=== PATIENT | male | born 1970 | race Caucasian/White ===

== ENCOUNTER 2021-03-16 21:09 | Emergency (ER) | payer OTHER | END 2021-03-16 22:57 | disposition left against medical advice (07) | LOC: ERS 21:09 | DX: Z53.21 Procedure and treatment not carried out due to patient leaving prior to being seen by health care provider (principal) ==

== ENCOUNTER 2021-03-17 06:58 | Emergency (ER) | payer OTHER | END 2021-03-17 14:46 | disposition left against medical advice (07) | LOC: ERS 06:58 | DX: Z00.00 Encounter for general adult medical examination without abnormal findings (principal) | CPT/HCPCS: 99283 ==

== ENCOUNTER 2021-03-31 10:00 | Emergency (ER) | payer SELFPAY | END 2021-03-31 12:24 | disposition home or self-care (01) | LOC: ERS 10:00 | DX: R21 Rash and other nonspecific skin eruption (principal); J44.9 Chronic obstructive pulmonary disease, unspecified; I25.2 Old myocardial infarction; F17.210 Nicotine dependence, cigarettes, uncomplicated | CPT/HCPCS: 99282 ==

== ENCOUNTER 2021-06-25 12:32 | Inpatient (IN) | payer MEDICAID, OTHER ==
[2021-06-25] MEDS ORDERED: Aspirin Chewable 81 MG TAB ONE (13:00)
[2021-06-25] MEDS ORDERED: Furosemide 40 MG/4 ML VIAL ONE (13:00)
[2021-06-25] MEDS ORDERED: Nitroglycerin 2% Ointment 1 INCH/1 GM Packet ONE (13:00)
[2021-06-25 13:33] LABS: #Eosinphils 0.1 thou/uL (0.0-0.7); #Lymphocytes 1.8 thou/uL (1.20-3.40); #Monocytes 0.5 thou/uL (0.11-0.59); #Neutrophils 5.8 thou/uL (1.40-6.50); %Basophils 0.6 % (0.0-1.0); %Eosinophils 1.3 % (0.0-10.0); %Monocytes 6.4 % (0.0-10.0); %Neutrophils 69.7 % (42.0-75.0); Mean Corpuscular HGB CONC 33.9 g/dL (32.0-36.0); Mean Corpuscular Hemoglobin 30.7 pg (27.0-31.0); Mean Corpuscular Volume 90.8 fL (78.0-98.0); Mean Platelet Volume 7.3 fL (7.4-10.4); Platelet Count 254 thou/uL (130-400); RBC Distribution Width 12.6 % (11.5-14.5); Red Blood Cell (RBC) Count 4.55 mill/uL (4.70-6.10); White Blood Cell (WBC) Count 8.4 thou/uL (4.8-10.8)
[2021-06-25 13:57] LABS: ALT (SGPT) 46 U/L (8-55); AST (SGOT) 31 U/L (5-34); Albumin 3.6 g/dL (3.5-5.0); Alkaline Phosphatase 97 U/L (40-110); Anion Gap 12 mmol/L (10-20); BUN (Urea Nitrogen) 10 mg/dL (8.4-25.7); Bilirubin, Total 0.3 mg/dL (0.2-1.2); Calc. Creatinine Clearance 0 mL/min (70-130); Calcium 9.2 mg/dL (7.8-10.44); Carbon Dioxide 18 mmol/L (22-29); Chloride 110 mmol/L (98-107); Globulin 2.9 g/dL (2.4-3.5); Glucose 102 mg/dL (70-105); Potassium 4.3 mmol/L (3.5-5.1); Protein, Total 6.5 g/dL (6.0-8.3); Sodium 136 mmol/L (136-145)
[2021-06-25] MEDS ORDERED: Lorazepam 1 MG TAB ONE (14:06)
[2021-06-25] MEDS ORDERED: Morphine 4 MG/ML VIAL ONE (14:12)
[2021-06-25 15:44] LABS: Amphetamine Detected (NotDetected); Barbiturates Screen Not Detected (NotDetected); Benzodiazepine Screen Not Detected (NotDetected); Cocaine Metabolite Screen Not Detected (NotDetected); Methadone Not Detected (NotDetected); Methamphetamine Detected (NotDetected); Opiate Screen Detected (NotDetected); Oxycodone Screen Not Detected (NotDetected); Phencyclidine (PCP) Not Detected (NotDetected); THC/Cannabinoid Screen Not Detected (NotDetected); Tricyclic Screen Not Detected (NotDetected)
[2021-06-25] MEDS ORDERED: Ondansetron ODT 4 MG TAB PO PRN (16:02)
[2021-06-25 18:03] LABS: Troponin I 0.047 ng/mL (< 0.028)
[2021-06-25 18:08] LABS: Cardiac Risk 3.3 (Less than 4.5)
[2021-06-25] MEDS ORDERED: ALBUTEROL 5 MG/ML NEB PRN (19:11)
[2021-06-25] MEDS ORDERED: Albuterol Sulfate 2.5 mg/3 ml Neb NEB PRN (19:42)
[2021-06-25] MEDS ORDERED: Mometasone 100 MCG/Formoterol 5 MCG 120 PUFF INHALER INH SCH (19:45)
[2021-06-25] MEDS: Baclofen 10 MG TAB PO SCH (22:18)
[2021-06-25] MEDS: Enoxaparin Sodium 40 MG/0.4 ML SYRINGE SC SCH (22:18)
[2021-06-25] MEDS: Gabapentin 300 MG CAP PO SCH (22:18)
[2021-06-25] MEDS: DULoxetine 30 MG CAP PO SCH (22:19)
[2021-06-25] MEDS: Dicyclomine 20 MG TAB PO SCH (22:19)
[2021-06-25] MEDS: busPIRone HCl 5 MG TAB PO SCH (22:20)
[2021-06-26 06:00] LABS: #Basophils 0.1 thou/uL (0.0-0.2); #Eosinphils 0.1 thou/uL (0.0-0.7); #Lymphocytes 1.4 thou/uL (1.20-3.40); #Monocytes 0.7 thou/uL (0.11-0.59); #Neutrophils 6.6 thou/uL (1.40-6.50); %Basophils 1.1 % (0.0-1.0); %Eosinophils 1.4 % (0.0-10.0); %Lymphocytes 15.7 % (21.0-51.0); %Monocytes 7.6 % (0.0-10.0); %Neutrophils 74.1 % (42.0-75.0); Hemoglobin 15.1 g/dL (14.0-18.0); Mean Corpuscular Volume 93.8 fL (78.0-98.0); Mean Platelet Volume 7.3 fL (7.4-10.4); Platelet Count 254 thou/uL (130-400); RBC Distribution Width 12.7 % (11.5-14.5); Red Blood Cell (RBC) Count 5.04 mill/uL (4.70-6.10); White Blood Cell (WBC) Count 8.9 thou/uL (4.8-10.8)
[2021-06-26 06:26] LABS: ALT (SGPT) 42 U/L (8-55); AST (SGOT) 24 U/L (5-34); Albumin 3.7 g/dL (3.5-5.0); Alkaline Phosphatase 101 U/L (40-110); Anion Gap 12 mmol/L (10-20); BUN (Urea Nitrogen) 14 mg/dL (8.4-25.7); Bilirubin, Total 0.7 mg/dL (0.2-1.2); Calc. Creatinine Clearance 98 mL/min (70-130); Calcium 9.7 mg/dL (7.8-10.44); Carbon Dioxide 23 mmol/L (22-29); Chloride 106 mmol/L (98-107); Globulin 3.2 g/dL (2.4-3.5); Glucose 114 mg/dL (70-105); Potassium 4.4 mmol/L (3.5-5.1); Protein, Total 6.9 g/dL (6.0-8.3); Sodium 137 mmol/L (136-145)
[2021-06-26] MEDS: Mometasone 100 MCG/Formoterol 5 MCG 120 PUFF INHALER INH SCH ×2 (07:39→17:35)
[2021-06-26] MEDS ORDERED: Furosemide 20 MG/2 ML VIAL SLOW IVP SCH ×2 (09:00→11:45)
[2021-06-26] MEDS: Levothyroxine Sodium 25 MCG TAB PO SCH (09:57)
[2021-06-26] MEDS: Gabapentin 300 MG CAP PO SCH ×3 (09:57→22:07)
[2021-06-26] MEDS: Aspirin Chewable 81 MG TAB PO SCH (09:57)
[2021-06-26] MEDS: DULoxetine 30 MG CAP PO SCH ×3 (09:58→22:08)
[2021-06-26] MEDS: Dicyclomine 20 MG TAB PO SCH ×4 (09:58→22:08)
[2021-06-26] MEDS: busPIRone HCl 5 MG TAB PO SCH ×2 (09:58→22:08)
[2021-06-26] MEDS: Lisinopril 10 MG TAB PO SCH (09:58)
[2021-06-26] MEDS: Baclofen 10 MG TAB PO SCH ×4 (09:58→22:08)
[2021-06-26] MEDS: Spironolactone 25 MG TAB PO SCH (09:59)
[2021-06-26] MEDS: Lidocaine 5% Patch TD SCH (09:59)
[2021-06-26] MEDS ORDERED: Furosemide 40 MG/4 ML VIAL SLOW IVP SCH ×2 (10:45→21:00)
[2021-06-26 11:44] LABS: SARS-CoV-2 PCR by NAA Not Detected (NotDetected)
[2021-06-26 15:15] LABS: Free T4 (Free Thyroxine) 0.84 ng/dL (0.70-1.48)
[2021-06-26] MEDS: Carvedilol 3.125 MG TAB PO SCH (17:13)
[2021-06-26] MEDS ORDERED: Non-Formulary Item 1 EACH (Carvedilol [Carvedilol] 12.5 MG Tablet) PO SCH (21:00)
[2021-06-26] MEDS: Enoxaparin Sodium 40 MG/0.4 ML SYRINGE SC SCH ×2 (22:06→22:40)
[2021-06-26] MEDS: Transdermal Patch Removal TOP SCH (22:09)
[2021-06-27 04:59] LABS: #Basophils 0.1 thou/uL (0.0-0.2); #Eosinphils 0.1 thou/uL (0.0-0.7); #Lymphocytes 1.4 thou/uL (1.20-3.40); #Monocytes 0.6 thou/uL (0.11-0.59); #Neutrophils 6.6 thou/uL (1.40-6.50); %Basophils 0.8 % (0.0-1.0); %Eosinophils 1.5 % (0.0-10.0); %Lymphocytes 15.8 % (21.0-51.0); %Neutrophils 74.9 % (42.0-75.0); Hemoglobin 15.9 g/dL (14.0-18.0); Mean Corpuscular HGB CONC 32.4 g/dL (32.0-36.0); Mean Corpuscular Hemoglobin 29.6 pg (27.0-31.0); Mean Corpuscular Volume 91.3 fL (78.0-98.0); Mean Platelet Volume 7.3 fL (7.4-10.4); Platelet Count 253 thou/uL (130-400); RBC Distribution Width 12.6 % (11.5-14.5); Red Blood Cell (RBC) Count 5.38 mill/uL (4.70-6.10); White Blood Cell (WBC) Count 8.9 thou/uL (4.8-10.8)
[2021-06-27 05:24] LABS: ALT (SGPT) 35 U/L (8-55); AST (SGOT) 20 U/L (5-34); Albumin 3.9 g/dL (3.5-5.0); Alkaline Phosphatase 106 U/L (40-110); Anion Gap 12 mmol/L (10-20); BUN (Urea Nitrogen) 22 mg/dL (8.4-25.7); Bilirubin, Total 0.4 mg/dL (0.2-1.2); Calc. Creatinine Clearance 104 mL/min (70-130); Calcium 9.6 mg/dL (7.8-10.44); Carbon Dioxide 23 mmol/L (22-29); Chloride 104 mmol/L (98-107); Globulin 3.1 g/dL (2.4-3.5); Glucose 110 mg/dL (70-105); Potassium 4.1 mmol/L (3.5-5.1); Sodium 135 mmol/L (136-145)
[2021-06-27] MEDS: Levothyroxine Sodium 25 MCG TAB PO SCH (05:54)
[2021-06-27] MEDS: Mometasone 100 MCG/Formoterol 5 MCG 120 PUFF INHALER INH SCH ×2 (06:33→18:51)
[2021-06-27] MEDS ORDERED: Furosemide 20 MG/2 ML VIAL SLOW IVP SCH (09:15)
[2021-06-27] MEDS: Carvedilol 3.125 MG TAB PO SCH ×2 (10:10→20:16)
[2021-06-27] MEDS: busPIRone HCl 5 MG TAB PO SCH (10:11)
[2021-06-27] MEDS: Lidocaine 5% Patch TD SCH (10:11)
[2021-06-27] MEDS: Aspirin Chewable 81 MG TAB PO SCH (10:11)
[2021-06-27] MEDS: Spironolactone 25 MG TAB PO SCH (10:11)
[2021-06-27] MEDS: Dicyclomine 20 MG TAB PO SCH ×4 (10:11→21:52)
[2021-06-27] MEDS: DULoxetine 30 MG CAP PO SCH ×3 (10:11→21:53)
[2021-06-27] MEDS: Lisinopril 10 MG TAB PO SCH (10:11)
[2021-06-27] MEDS ORDERED: Furosemide 40 MG TAB PO SCH (17:15)
[2021-06-27] MEDS ORDERED: Furosemide 40 MG/4 ML VIAL SLOW IVP SCH (18:30)
[2021-06-27] MEDS ORDERED: Levothyroxine Sodium 200 MCG VIAL IVP SCH (18:30)
[2021-06-27] MEDS: Furosemide 20 MG/2 ML VIAL SLOW IVP SCH (20:13)
[2021-06-27] MEDS: Enoxaparin Sodium 40 MG/0.4 ML SYRINGE SC SCH (21:53)
[2021-06-27] MEDS: Transdermal Patch Removal TOP SCH (21:54)
[2021-06-28] MEDS: Levothyroxine Sodium 25 MCG TAB PO SCH (06:48)
[2021-06-28] MEDS: Furosemide 20 MG/2 ML VIAL SLOW IVP SCH ×2 (06:50→18:42)
[2021-06-28] MEDS: Mometasone 100 MCG/Formoterol 5 MCG 120 PUFF INHALER INH SCH ×2 (07:58→19:02)
[2021-06-28] MEDS: Lisinopril 10 MG TAB PO SCH ×2 (09:16→09:23)
[2021-06-28] MEDS: Spironolactone 25 MG TAB PO SCH ×2 (09:16→09:23)
[2021-06-28] MEDS: Dicyclomine 20 MG TAB PO SCH ×4 (09:16→22:12)
[2021-06-28] MEDS: Carvedilol 3.125 MG TAB PO SCH ×3 (09:16→18:43)
[2021-06-28] MEDS: Aspirin Chewable 81 MG TAB PO SCH ×2 (09:16→09:24)
[2021-06-28] MEDS: Lidocaine 5% Patch TD SCH ×3 (09:17→09:55)
[2021-06-28] MEDS: DULoxetine 30 MG CAP PO SCH ×4 (09:17→22:12)
[2021-06-28] MEDS ORDERED: diphenhydrAMINE 50 MG/ML VIAL IM SCH (14:30)
[2021-06-28] MEDS ORDERED: Haloperidol Lactate 5 MG/ML VIAL IM SCH (14:30)
[2021-06-28] MEDS ORDERED: Haloperidol Lactate 5 MG/ML VIAL IM PRN (16:07)
[2021-06-28] MEDS ORDERED: Furosemide 40 MG/4 ML VIAL SLOW IVP SCH (16:15)
[2021-06-28 17:41] LABS: #Eosinphils 0.1 thou/uL (0.0-0.7); #Lymphocytes 1.6 thou/uL (1.20-3.40); #Monocytes 0.9 thou/uL (0.11-0.59); #Neutrophils 8.8 thou/uL (1.40-6.50); %Basophils 0.3 % (0.0-1.0); %Eosinophils 0.5 % (0.0-10.0); %Monocytes 7.7 % (0.0-10.0); %Neutrophils 77.5 % (42.0-75.0); Hemoglobin 17.5 g/dL (14.0-18.0); Mean Corpuscular HGB CONC 32.2 g/dL (32.0-36.0); Mean Corpuscular Hemoglobin 29.1 pg (27.0-31.0); Mean Corpuscular Volume 90.3 fL (78.0-98.0); Mean Platelet Volume 7.3 fL (7.4-10.4); Platelet Count 241 thou/uL (130-400); RBC Distribution Width 12.6 % (11.5-14.5); Red Blood Cell (RBC) Count 6.02 mill/uL (4.70-6.10); White Blood Cell (WBC) Count 11.3 thou/uL (4.8-10.8)
[2021-06-28 18:08] LABS: Lactic Acid 2.1 mmol/L (0.5-2.2)
[2021-06-28 18:10] LABS: Bacteria/HPF None Seen HPF (None Seen); Bilirubin Negative (Negative); Blood, Urine Negative (Negative); Clarity Turbid (Clear); Glucose, Urine (Dipstick) Normal (Negative); Ketone, Urine Trace mg/dL (Negative); Leukocyte Negative Leu/uL (Negative); Nitrite Negative (Negative); Protein, Urine (Dipstick) 30 mg/dL (Neg-Trace); RBC/HPF 0-3 HPF (0-3); Specific Gravity, Urine 1.033 (1.002-1.036); Squamous Epithelial 0-3 HPF (0-3); Urobilinogen Normal mg/dL (Less than 2); WBC/HPF 0-3 HPF (0-3); pH, Urine 5.5 (5.0-9.0)
[2021-06-28 18:11] LABS: ALT (SGPT) 28 U/L (8-55); AST (SGOT) 63 U/L (5-34); Albumin 4.1 g/dL (3.5-5.0); Alkaline Phosphatase 113 U/L (40-110); Anion Gap 17 mmol/L (10-20); BUN (Urea Nitrogen) 29 mg/dL (8.4-25.7); Bilirubin, Total 0.8 mg/dL (0.2-1.2); Calc. Creatinine Clearance 105 mL/min (70-130); Carbon Dioxide 18 mmol/L (22-29); Chloride 107 mmol/L (98-107); Globulin 3.5 g/dL (2.4-3.5); Glucose 102 mg/dL (70-105); Potassium 4.4 mmol/L (3.5-5.1); Protein, Total 7.6 g/dL (6.0-8.3); Sodium 138 mmol/L (136-145)
[2021-06-28 18:18] LABS: Amphetamine Detected (NotDetected); Barbiturates Screen Not Detected (NotDetected); Benzodiazepine Screen Not Detected (NotDetected); Cocaine Metabolite Screen Not Detected (NotDetected); Methadone Not Detected (NotDetected); Methamphetamine Detected (NotDetected); Opiate Screen Not Detected (NotDetected); Oxycodone Screen Not Detected (NotDetected); Phencyclidine (PCP) Not Detected (NotDetected); THC/Cannabinoid Screen Not Detected (NotDetected); Tricyclic Screen Not Detected (NotDetected)
[2021-06-28] MEDS: Transdermal Patch Removal TOP SCH (22:12)
[2021-06-28] MEDS: Haloperidol Lactate 5 MG/ML VIAL IM PRN (23:04)
[2021-06-28] MEDS: Enoxaparin Sodium 40 MG/0.4 ML SYRINGE SC SCH (23:53)
[2021-06-29 04:49] LABS: #Basophils 0.1 thou/uL (0.0-0.2); #Eosinphils 0.1 thou/uL (0.0-0.7); #Lymphocytes 1.7 thou/uL (1.20-3.40); %Basophils 0.5 % (0.0-1.0); %Eosinophils 0.5 % (0.0-10.0); %Monocytes 10.3 % (0.0-10.0); %Neutrophils 71.7 % (42.0-75.0); Hemoglobin 17.1 g/dL (14.0-18.0); Mean Corpuscular HGB CONC 33.3 g/dL (32.0-36.0); Mean Corpuscular Volume 90.1 fL (78.0-98.0); Mean Platelet Volume 7.4 fL (7.4-10.4); Platelet Count 282 thou/uL (130-400); RBC Distribution Width 12.6 % (11.5-14.5); Red Blood Cell (RBC) Count 5.71 mill/uL (4.70-6.10); White Blood Cell (WBC) Count 9.7 thou/uL (4.8-10.8)
[2021-06-29 05:10] LABS: ALT (SGPT) 31 U/L (8-55); AST (SGOT) 83 U/L (5-34); Alkaline Phosphatase 110 U/L (40-110); Anion Gap 16 mmol/L (10-20); BUN (Urea Nitrogen) 33 mg/dL (8.4-25.7); Calc. Creatinine Clearance 93 mL/min (70-130); Calcium 10.1 mg/dL (7.8-10.44); Carbon Dioxide 19 mmol/L (22-29); Chloride 108 mmol/L (98-107); Globulin 3.5 g/dL (2.4-3.5); Glucose 127 mg/dL (70-105); Potassium 4.3 mmol/L (3.5-5.1); Protein, Total 7.5 g/dL (6.0-8.3); Sodium 139 mmol/L (136-145)
[2021-06-29] MEDS: Furosemide 20 MG/2 ML VIAL SLOW IVP SCH ×2 (05:33→14:02)
[2021-06-29] MEDS ORDERED: Levothyroxine Sodium 200 MCG VIAL IVP SCH (06:00)
[2021-06-29] MEDS: Mometasone 100 MCG/Formoterol 5 MCG 120 PUFF INHALER INH SCH ×2 (08:04→18:34)
[2021-06-29] MEDS: Lidocaine 5% Patch TD SCH (09:46)
[2021-06-29] MEDS: Aspirin 300 MG Suppository PR SCH ×3 (09:47→15:49)
[2021-06-29] MEDS: Dextrose 5%-Lactated Ringers 1,000 ML IV SCH (10:01)
[2021-06-29] MEDS: Levothyroxine Sodium 25 MCG TAB PO SCH (12:30)
[2021-06-29] MEDS: Carvedilol 3.125 MG TAB PO SCH ×2 (12:30→18:30)
[2021-06-29] MEDS: Dicyclomine 20 MG TAB PO SCH ×4 (12:31→20:04)
[2021-06-29] MEDS: Spironolactone 25 MG TAB PO SCH (12:31)
[2021-06-29] MEDS: DULoxetine 30 MG CAP PO SCH ×3 (12:31→20:04)
[2021-06-29] MEDS: Lisinopril 10 MG TAB PO SCH (12:31)
[2021-06-29] MEDS ORDERED: diphenhydrAMINE 50 MG/ML VIAL IM SCH (13:30)
[2021-06-29] MEDS: Haloperidol Lactate 5 MG/ML VIAL IM PRN (13:53)
[2021-06-29 15:14] LABS: Actual Bicarbonate (HCO3v) 20 mEq/L (22-28); Base Excess -2.6 mEq/L (-2.0 to +3.0); Calcium, Ionized (venous) 1.19 mmol/L (1.16-1.32); Chloride (VBG) 105 mmol/L (98-106); Hemoglobin (Hb) 17.7 g/dL (13.1-17.2); Potassium (VBG) 4.68 mmol/L (3.70-5.30); Sodium 139.6 mmol/L (133-146); pH (venous) 7.45 (7.32-7.43)
[2021-06-29] MEDS: Lorazepam 2 MG/ML VIAL SLOW IVP PRN (15:48)
[2021-06-29 17:08] LABS: HIV (1/2) Antibody/Antigen Non-Reactive (NonReactive); HIV 1/2 INDEX 0.11 S/CO (<1.00); Hep C IgG Ab Non-Reactive (NonReactive); Hep C Index 0.04 S/CO (0-0.79)
[2021-06-29 17:14] LABS: Troponin I 6.354 ng/mL (< 0.028)
[2021-06-29 19:06] LABS: Critical Call Chem Troponin I RESULT DECREASING; Troponin I 5.193 ng/mL (< 0.028)
[2021-06-29] MEDS: Enoxaparin Sodium 80 MG/0.8 ML SYRINGE SC SCH (20:30)
[2021-06-29] MEDS: Transdermal Patch Removal TOP SCH (20:32)
[2021-06-30] MEDS: Furosemide 20 MG/2 ML VIAL SLOW IVP SCH ×2 (05:25→16:19)
[2021-06-30] MEDS: Mometasone 100 MCG/Formoterol 5 MCG 120 PUFF INHALER INH SCH ×2 (07:21→18:46)
[2021-06-30 07:26] LABS: #Basophils 0.1 thou/uL (0.0-0.2); #Lymphocytes 1.8 thou/uL (1.20-3.40); #Monocytes 1.2 thou/uL (0.11-0.59); #Neutrophils 7.8 thou/uL (1.40-6.50); %Basophils 0.8 % (0.0-1.0); %Eosinophils 0.4 % (0.0-10.0); %Lymphocytes 16.2 % (21.0-51.0); %Monocytes 10.9 % (0.0-10.0); %Neutrophils 71.7 % (42.0-75.0); Hemoglobin 17.6 g/dL (14.0-18.0); Mean Corpuscular HGB CONC 32.3 g/dL (32.0-36.0); Mean Corpuscular Hemoglobin 29.6 pg (27.0-31.0); Mean Corpuscular Volume 91.4 fL (78.0-98.0); Mean Platelet Volume 7.4 fL (7.4-10.4); Platelet Count 259 thou/uL (130-400); RBC Distribution Width 12.6 % (11.5-14.5); Red Blood Cell (RBC) Count 5.96 mill/uL (4.70-6.10); White Blood Cell (WBC) Count 10.8 thou/uL (4.8-10.8)
[2021-06-30 07:45] LABS: ALT (SGPT) 37 U/L (8-55); AST (SGOT) 64 U/L (5-34); Albumin 4.1 g/dL (3.5-5.0); Alkaline Phosphatase 106 U/L (40-110); Anion Gap 20 mmol/L (10-20); BUN (Urea Nitrogen) 38 mg/dL (8.4-25.7); Bilirubin, Total 1.1 mg/dL (0.2-1.2); Calc. Creatinine Clearance 83 mL/min (70-130); Calcium 10.2 mg/dL (7.8-10.44); Carbon Dioxide 17 mmol/L (22-29); Chloride 109 mmol/L (98-107); Globulin 3.7 g/dL (2.4-3.5); Glucose 127 mg/dL (70-105); Protein, Total 7.8 g/dL (6.0-8.3); Sodium 142 mmol/L (136-145)
[2021-06-30] MEDS: Haloperidol Lactate 5 MG/ML VIAL IM PRN (08:33)
[2021-06-30] MEDS: Lidocaine 5% Patch TD SCH (09:00)
[2021-06-30] MEDS: Enoxaparin Sodium 80 MG/0.8 ML SYRINGE SC SCH ×2 (09:00→22:04)
[2021-06-30] MEDS: Levothyroxine Sodium 25 MCG TAB PO SCH (11:04)
[2021-06-30] MEDS: Carvedilol 3.125 MG TAB PO SCH ×2 (11:05→17:55)
[2021-06-30] MEDS: DULoxetine 30 MG CAP PO SCH ×3 (11:06→22:04)
[2021-06-30] MEDS: Lisinopril 10 MG TAB PO SCH (11:06)
[2021-06-30] MEDS: Spironolactone 25 MG TAB PO SCH (11:06)
[2021-06-30] MEDS: Dicyclomine 20 MG TAB PO SCH ×4 (11:06→22:04)
[2021-06-30 11:07] LABS: Syphilis Antibody Nonreactive (Nonreactive); Syphilis Antibody Index 0.01 S/CO (<1.00 Non-Reactive)
[2021-06-30] MEDS: Dextrose 5%-Lactated Ringers 1,000 ML IV SCH (11:34)
[2021-06-30] MEDS: diphenhydrAMINE 50 MG/ML VIAL IVP PRN (11:47)
[2021-06-30] MEDS: Aspirin 300 MG Suppository PR SCH (18:39)
[2021-06-30] MEDS: Transdermal Patch Removal TOP SCH (22:07)
[2021-07-01] MEDS: Haloperidol Lactate 5 MG/ML VIAL IM PRN ×2 (04:36→21:29)
[2021-07-01] MEDS: Furosemide 20 MG/2 ML VIAL SLOW IVP SCH ×2 (05:10→14:54)
[2021-07-01 05:29] LABS: #Basophils 0.1 thou/uL (0.0-0.2); #Lymphocytes 1.7 thou/uL (1.20-3.40); #Monocytes 1.8 thou/uL (0.11-0.59); #Neutrophils 9.5 thou/uL (1.40-6.50); %Basophils 0.4 % (0.0-1.0); %Eosinophils 0.1 % (0.0-10.0); %Lymphocytes 12.7 % (21.0-51.0); %Monocytes 13.9 % (0.0-10.0); %Neutrophils 72.9 % (42.0-75.0); Hemoglobin 15.9 g/dL (14.0-18.0); Mean Corpuscular HGB CONC 32.1 g/dL (32.0-36.0); Mean Corpuscular Hemoglobin 29.2 pg (27.0-31.0); Mean Corpuscular Volume 90.9 fL (78.0-98.0); Mean Platelet Volume 8.4 fL (7.4-10.4); Platelet Count 274 thou/uL (130-400); RBC Distribution Width 12.5 % (11.5-14.5); Red Blood Cell (RBC) Count 5.45 mill/uL (4.70-6.10)
[2021-07-01 05:51] LABS: ALT (SGPT) 50 U/L (8-55); AST (SGOT) 65 U/L (5-34); Albumin 4.2 g/dL (3.5-5.0); Alkaline Phosphatase 109 U/L (40-110); Anion Gap 19 mmol/L (10-20); BUN (Urea Nitrogen) 43 mg/dL (8.4-25.7); Bilirubin, Total 1.5 mg/dL (0.2-1.2); Calc. Creatinine Clearance 79 mL/min (70-130); Calcium 10.3 mg/dL (7.8-10.44); Carbon Dioxide 20 mmol/L (22-29); Cardiac Risk 5.4 (Less than 4.5); Chloride 111 mmol/L (98-107); Cholesterol 248 mg/dl (< 200 Desired); Globulin 3.8 g/dL (2.4-3.5); Glucose 120 mg/dL (70-105); HDL Cholesterol 46 mg/dL (>60 Neg Risk); LDL Cholesterol, Calculated 171 mg/dL; Potassium 3.9 mmol/L (3.5-5.1); Sodium 146 mmol/L (136-145); Triglycerides 154 mg/dL (Less than 150)
[2021-07-01] MEDS: Mometasone 100 MCG/Formoterol 5 MCG 120 PUFF INHALER INH SCH ×2 (08:01→19:16)
[2021-07-01] MEDS: Enoxaparin Sodium 80 MG/0.8 ML SYRINGE SC SCH ×2 (08:56→21:29)
[2021-07-01] MEDS: Lidocaine 5% Patch TD SCH (08:56)
[2021-07-01] MEDS: Aspirin 300 MG Suppository PR SCH (08:56)
[2021-07-01] MEDS: Dicyclomine 20 MG TAB PO SCH ×4 (08:57→21:29)
[2021-07-01] MEDS: Levothyroxine Sodium 25 MCG TAB PO SCH (10:02)
[2021-07-01] MEDS: DULoxetine 30 MG CAP PO SCH ×3 (10:02→21:29)
[2021-07-01] MEDS: Carvedilol 3.125 MG TAB PO SCH ×2 (10:02→16:06)
[2021-07-01] MEDS: Lisinopril 10 MG TAB PO SCH (10:02)
[2021-07-01] MEDS: Spironolactone 25 MG TAB PO SCH (10:02)
[2021-07-01] MEDS: Dextrose 5%-Lactated Ringers 1,000 ML IV SCH ×2 (10:09→20:05)
[2021-07-01] MEDS: diphenhydrAMINE 50 MG/ML VIAL IVP PRN ×2 (13:47→23:52)
[2021-07-01] MEDS: Transdermal Patch Removal TOP SCH (21:29)
[2021-07-02] MEDS: Levothyroxine 100 MCG SDV IVP SCH (05:49)
[2021-07-02] MEDS: Furosemide 20 MG/2 ML VIAL SLOW IVP SCH ×2 (05:49→14:32)
[2021-07-02] MEDS ORDERED: Levothyroxine Sodium 200 MCG VIAL IVP SCH (06:00)
[2021-07-02] MEDS: Mometasone 100 MCG/Formoterol 5 MCG 120 PUFF INHALER INH SCH ×2 (06:59→19:26)
[2021-07-02] MEDS: Carvedilol 3.125 MG TAB PO SCH ×2 (09:27→16:01)
[2021-07-02] MEDS: Dicyclomine 20 MG TAB PO SCH ×4 (09:27→20:36)
[2021-07-02] MEDS: DULoxetine 30 MG CAP PO SCH ×3 (09:27→20:37)
[2021-07-02] MEDS: Lisinopril 10 MG TAB PO SCH (09:28)
[2021-07-02] MEDS: Spironolactone 25 MG TAB PO SCH (09:29)
[2021-07-02] MEDS: Lidocaine 5% Patch TD SCH (09:30)
[2021-07-02] MEDS: Aspirin 300 MG Suppository PR SCH (09:30)
[2021-07-02 09:44] LABS: #Eosinphils 0.1 thou/uL (0.0-0.7); #Monocytes 1.5 thou/uL (0.11-0.59); #Neutrophils 7.3 thou/uL (1.40-6.50); %Basophils 0.4 % (0.0-1.0); %Eosinophils 0.5 % (0.0-10.0); %Monocytes 13.8 % (0.0-10.0); %Neutrophils 67.3 % (42.0-75.0); Hemoglobin 16.8 g/dL (14.0-18.0); Mean Corpuscular HGB CONC 32.7 g/dL (32.0-36.0); Mean Corpuscular Volume 91.7 fL (78.0-98.0); Mean Platelet Volume 7.8 fL (7.4-10.4); Platelet Count 277 thou/uL (130-400); RBC Distribution Width 12.3 % (11.5-14.5); White Blood Cell (WBC) Count 10.8 thou/uL (4.8-10.8)
[2021-07-02 10:04] LABS: ALT (SGPT) 55 U/L (8-55); AST (SGOT) 58 U/L (5-34); Albumin 4.4 g/dL (3.5-5.0); Alkaline Phosphatase 107 U/L (40-110); Anion Gap 20 mmol/L (10-20); BUN (Urea Nitrogen) 44 mg/dL (8.4-25.7); Bilirubin, Total 1.4 mg/dL (0.2-1.2); Calc. Creatinine Clearance 69 mL/min (70-130); Calcium 10.4 mg/dL (7.8-10.44); Carbon Dioxide 23 mmol/L (22-29); Chloride 113 mmol/L (98-107); Globulin 4.1 g/dL (2.4-3.5); Glucose 116 mg/dL (70-105); Potassium 4.1 mmol/L (3.5-5.1); Protein, Total 8.5 g/dL (6.0-8.3); Sodium 152 mmol/L (136-145)
[2021-07-02] MEDS ORDERED: Dextrose 5% in Water 1,000 ML IV SCH (20:00)
[2021-07-02] MEDS: Transdermal Patch Removal TOP SCH (20:37)
[2021-07-03 01:16] LABS: Phosphorus 4.3 mg/dL (2.3-4.7)
[2021-07-03 01:19] LABS: Anion Gap 18 mmol/L (10-20); BUN (Urea Nitrogen) 51 mg/dL (8.4-25.7); Calc. Creatinine Clearance 70 mL/min (70-130); Calcium 10.1 mg/dL (7.8-10.44); Carbon Dioxide 22 mmol/L (22-29); Chloride 117 mmol/L (98-107); Glucose 134 mg/dL (70-105); Magnesium 2.8 mg/dL (1.6-2.6); Potassium 3.8 mmol/L (3.5-5.1); Sodium 153 mmol/L (136-145)
[2021-07-03 01:20] LABS: Bilirubin Negative (Negative); Blood, Urine 2+ (Negative); Clarity Turbid (Clear); Glucose, Urine (Dipstick) Normal (Negative); Ketone, Urine Negative (Negative); Leukocyte 500 Leu/uL (Negative); Nitrite Negative (Negative); Protein, Urine (Dipstick) 10 mg/dL (Neg-Trace); Specific Gravity, Urine 1.023 (1.002-1.036); Squamous Epithelial None Seen HPF (0-3); Urobilinogen Normal mg/dL (Less than 2); WBC/HPF 21-50 HPF (0-3); pH, Urine 5.5 (5.0-9.0)
[2021-07-03 01:23] LABS: Bacteria/HPF 1+ HPF (None Seen)
[2021-07-03 01:26] LABS: Urine Culture Reflex Yes Yes
[2021-07-03 06:21] LABS: #Eosinphils 0.1 thou/uL (0.0-0.7); #Lymphocytes 1.8 thou/uL (1.20-3.40); #Monocytes 1.2 thou/uL (0.11-0.59); #Neutrophils 6.5 thou/uL (1.40-6.50); %Basophils 0.4 % (0.0-1.0); %Eosinophils 1.1 % (0.0-10.0); %Lymphocytes 18.5 % (21.0-51.0); %Monocytes 12.9 % (0.0-10.0); %Neutrophils 67.1 % (42.0-75.0); Hemoglobin 16.9 g/dL (14.0-18.0); Mean Corpuscular HGB CONC 32.2 g/dL (32.0-36.0); Mean Corpuscular Hemoglobin 29.3 pg (27.0-31.0); Mean Platelet Volume 8.3 fL (7.4-10.4); Platelet Count 296 thou/uL (130-400); RBC Distribution Width 12.3 % (11.5-14.5); Red Blood Cell (RBC) Count 5.78 mill/uL (4.70-6.10); White Blood Cell (WBC) Count 9.7 thou/uL (4.8-10.8)
[2021-07-03 06:35] LABS: ALT (SGPT) 61 U/L (8-55); AST (SGOT) 60 U/L (5-34); Albumin 4.2 g/dL (3.5-5.0); Alkaline Phosphatase 106 U/L (40-110); Anion Gap 19 mmol/L (10-20); BUN (Urea Nitrogen) 53 mg/dL (8.4-25.7); Bilirubin, Total 1.5 mg/dL (0.2-1.2); Calc. Creatinine Clearance 68 mL/min (70-130); Calcium 10.1 mg/dL (7.8-10.44); Carbon Dioxide 20 mmol/L (22-29); Chloride 115 mmol/L (98-107); Globulin 3.9 g/dL (2.4-3.5); Glucose 129 mg/dL (70-105); Potassium 3.8 mmol/L (3.5-5.1); Protein, Total 8.1 g/dL (6.0-8.3); Sodium 150 mmol/L (136-145)
[2021-07-03] MEDS: Furosemide 20 MG/2 ML VIAL SLOW IVP SCH ×2 (06:47→15:37)
[2021-07-03] MEDS: Levothyroxine 100 MCG SDV IVP SCH (06:51)
[2021-07-03] MEDS: Mometasone 100 MCG/Formoterol 5 MCG 120 PUFF INHALER INH SCH ×2 (07:44→18:51)
[2021-07-03] MEDS: Carvedilol 3.125 MG TAB PO SCH ×2 (08:28→10:38)
[2021-07-03] MEDS: Dicyclomine 20 MG TAB PO SCH ×3 (08:28→21:41)
[2021-07-03] MEDS: DULoxetine 30 MG CAP PO SCH ×3 (08:29→21:41)
[2021-07-03] MEDS: Spironolactone 25 MG TAB PO SCH (08:29)
[2021-07-03] MEDS: Lisinopril 10 MG TAB PO SCH (08:30)
[2021-07-03] MEDS: Aspirin 300 MG Suppository PR SCH (10:54)
[2021-07-03] MEDS: Enoxaparin Sodium 80 MG/0.8 ML SYRINGE SC SCH (10:54)
[2021-07-03] MEDS: cefTRIAXone\\ROCEPHIN 1 GM in Sodium Chloride 0.9% 100 ML IVPB SCH (10:55)
[2021-07-03] MEDS: Lidocaine 5% Patch TD SCH (10:55)
[2021-07-03] MEDS: diphenhydrAMINE 50 MG/ML VIAL IVP PRN (11:05)
[2021-07-03 14:31] LABS: Anion Gap 19 mmol/L (10-20); BUN (Urea Nitrogen) 54 mg/dL (8.4-25.7); Calc. Creatinine Clearance 60 mL/min (70-130); Calcium 10.1 mg/dL (7.8-10.44); Carbon Dioxide 22 mmol/L (22-29); Chloride 113 mmol/L (98-107); Glucose 132 mg/dL (70-105); Potassium 3.9 mmol/L (3.5-5.1); Sodium 150 mmol/L (136-145)
[2021-07-03] MEDS: Dextrose 5% in Water 1,000 ML IV SCH (15:37)
[2021-07-03 15:53] VITALS: BMI 21.1
[2021-07-03] MEDS: Transdermal Patch Removal TOP SCH (21:41)
[2021-07-04] MEDS: diphenhydrAMINE 50 MG/ML VIAL IVP PRN ×3 (01:17→20:35)
[2021-07-04] MEDS: Dextrose 5% in Water 1,000 ML IV SCH ×3 (03:22→16:01)
[2021-07-04 05:41] LABS: #Basophils 0.1 thou/uL (0.0-0.2); #Eosinphils 0.2 thou/uL (0.0-0.7); #Lymphocytes 2.2 thou/uL (1.20-3.40); #Monocytes 1.4 thou/uL (0.11-0.59); %Basophils 0.6 % (0.0-1.0); %Eosinophils 1.6 % (0.0-10.0); %Lymphocytes 18.7 % (21.0-51.0); %Monocytes 11.8 % (0.0-10.0); %Neutrophils 67.3 % (42.0-75.0); Hemoglobin 16.5 g/dL (14.0-18.0); Mean Corpuscular HGB CONC 32.8 g/dL (32.0-36.0); Mean Corpuscular Hemoglobin 29.9 pg (27.0-31.0); Mean Corpuscular Volume 91.4 fL (78.0-98.0); Mean Platelet Volume 8.2 fL (7.4-10.4); Platelet Count 314 thou/uL (130-400); RBC Distribution Width 12.1 % (11.5-14.5); White Blood Cell (WBC) Count 11.9 thou/uL (4.8-10.8)
[2021-07-04 06:04] LABS: ALT (SGPT) 71 U/L (8-55); AST (SGOT) 58 U/L (5-34); Albumin 4.2 g/dL (3.5-5.0); Alkaline Phosphatase 107 U/L (40-110); Anion Gap 18 mmol/L (10-20); BUN (Urea Nitrogen) 57 mg/dL (8.4-25.7); Bilirubin, Total 1.5 mg/dL (0.2-1.2); Calc. Creatinine Clearance 53 mL/min (70-130); Calcium 9.9 mg/dL (7.8-10.44); Carbon Dioxide 24 mmol/L (22-29); Chloride 112 mmol/L (98-107); Globulin 3.8 g/dL (2.4-3.5); Glucose 130 mg/dL (70-105); Potassium 3.5 mmol/L (3.5-5.1); Sodium 150 mmol/L (136-145)
[2021-07-04] MEDS: Furosemide 20 MG/2 ML VIAL SLOW IVP SCH ×2 (06:44→14:34)
[2021-07-04] MEDS: Levothyroxine 100 MCG SDV IVP SCH (06:45)
[2021-07-04] MEDS: Mometasone 100 MCG/Formoterol 5 MCG 120 PUFF INHALER INH SCH ×2 (07:46→19:27)
[2021-07-04] MEDS: Carvedilol 3.125 MG TAB PO SCH ×2 (07:56→13:14)
[2021-07-04] MEDS: Dicyclomine 20 MG TAB PO SCH ×2 (07:56→21:34)
[2021-07-04] MEDS: Lisinopril 10 MG TAB PO SCH (07:57)
[2021-07-04] MEDS: Spironolactone 25 MG TAB PO SCH (07:57)
[2021-07-04] MEDS: DULoxetine 30 MG CAP PO SCH ×2 (07:57→21:34)
[2021-07-04] MEDS: Aspirin 300 MG Suppository PR SCH (10:28)
[2021-07-04] MEDS: cefTRIAXone\\ROCEPHIN 1 GM in Sodium Chloride 0.9% 100 ML IVPB SCH (10:32)
[2021-07-04] MEDS: Lidocaine 5% Patch TD SCH (10:32)
[2021-07-04] MEDS: Enoxaparin Sodium 80 MG/0.8 ML SYRINGE SC SCH (10:32)
[2021-07-04] MEDS: Metoprolol Tartrate 5 MG/5 ML VIAL IVP SCH ×3 (10:41→21:33)
[2021-07-04] MEDS: Transdermal Patch Removal TOP SCH (21:34)
[2021-07-05] MEDS: Dextrose 5% in Water 1,000 ML IV SCH ×3 (02:21→23:16)
[2021-07-05] MEDS: Metoprolol Tartrate 5 MG/5 ML VIAL IVP SCH ×4 (04:50→23:18)
[2021-07-05] MEDS: Furosemide 20 MG/2 ML VIAL SLOW IVP SCH ×2 (05:56→14:55)
[2021-07-05] MEDS: Levothyroxine 100 MCG SDV IVP SCH (05:56)
[2021-07-05] MEDS: Mometasone 100 MCG/Formoterol 5 MCG 120 PUFF INHALER INH SCH ×2 (07:20→18:21)
[2021-07-05 08:00] LABS: SARS-CoV-2 PCR by NAA Not Detected (NotDetected)
[2021-07-05] MEDS: Aspirin 300 MG Suppository PR SCH (09:45)
[2021-07-05] MEDS: Lidocaine 5% Patch TD SCH (09:47)
[2021-07-05] MEDS: Dicyclomine 20 MG TAB PO SCH ×4 (09:50→21:17)
[2021-07-05] MEDS: DULoxetine 30 MG CAP PO SCH ×3 (09:50→21:17)
[2021-07-05] MEDS: Carvedilol 3.125 MG TAB PO SCH ×2 (09:51→17:54)
[2021-07-05] MEDS: Lisinopril 10 MG TAB PO SCH (09:51)
[2021-07-05] MEDS: Spironolactone 25 MG TAB PO SCH (09:52)
[2021-07-05] MEDS: Enoxaparin Sodium 40 MG/0.4 ML SYRINGE SC SCH (10:06)
[2021-07-05] MEDS: Enoxaparin Sodium 80 MG/0.8 ML SYRINGE SC SCH (10:54)
[2021-07-05] MEDS: diphenhydrAMINE 50 MG/ML VIAL IVP PRN (14:55)
[2021-07-05] MEDS: Haloperidol Lactate 5 MG/ML VIAL IM PRN (18:08)
[2021-07-05] MEDS: Lorazepam 2 MG/ML VIAL SLOW IVP PRN (20:04)
[2021-07-05] MEDS: Transdermal Patch Removal TOP SCH (22:52)
[2021-07-06] MEDS: Furosemide 20 MG/2 ML VIAL SLOW IVP SCH ×2 (05:36→14:45)
[2021-07-06] MEDS: Levothyroxine 100 MCG SDV IVP SCH (06:28)
[2021-07-06] MEDS: Mometasone 100 MCG/Formoterol 5 MCG 120 PUFF INHALER INH SCH (07:30)
[2021-07-06] MEDS: Dicyclomine 20 MG TAB PO SCH ×2 (07:39→10:59)
[2021-07-06] MEDS: Spironolactone 25 MG TAB PO SCH (07:39)
[2021-07-06] MEDS: Lisinopril 10 MG TAB PO SCH (07:39)
[2021-07-06] MEDS: Carvedilol 3.125 MG TAB PO SCH ×2 (07:39→11:00)
[2021-07-06] MEDS: DULoxetine 30 MG CAP PO SCH ×2 (07:39→10:59)
[2021-07-06] MEDS ORDERED: Lorazepam 2 MG/ML VIAL SLOW IVP SCH (08:30)
[2021-07-06] MEDS: Metoprolol Tartrate 5 MG/5 ML VIAL IVP SCH ×3 (09:27→18:02)
[2021-07-06] MEDS: Enoxaparin Sodium 40 MG/0.4 ML SYRINGE SC SCH (09:35)
[2021-07-06] MEDS: Lidocaine 5% Patch TD SCH (09:35)
[2021-07-06] MEDS: Aspirin 300 MG Suppository PR SCH (09:36)
[2021-07-06] MEDS: Lorazepam 2 MG/ML VIAL SLOW IVP SCH ×2 (10:59→18:11)
[2021-07-06] MEDS ORDERED: Haloperidol Lactate 5 MG/ML VIAL IM PRN (11:38)
[2021-07-06 16:20] VITALS: BP 104/66; TEMP 97.7
== END 2021-07-06 19:20 | disposition hospice, home (50) | DRG 64 ==
LOC: ERS 12:32 → 2NO 15:01 → NEURO 07-02 15:30
PROVIDERS: ADMIT Student in an Organized Health Care Education/Training Program; ATTEND Student in an Organized Health Care Education/Training Program
DX: I63.511 Cerebral infarction due to unspecified occlusion or stenosis of right middle cerebral artery (principal); I21.A1 Myocardial infarction type 2; I50.23 Acute on chronic systolic (congestive) heart failure; F15.13 Other stimulant abuse with withdrawal; I47.1 Supraventricular tachycardia; G93.49 Other encephalopathy; E87.1 Hypo-osmolality and hyponatremia; N39.0 Urinary tract infection, site not specified; N17.9 Acute kidney failure, unspecified; I11.0 Hypertensive heart disease with heart failure; Z66 Do not resuscitate; Z20.822 Contact with and (suspected) exposure to COVID-19; Z51.5 Encounter for palliative care; F31.9 Bipolar disorder, unspecified; E78.5 Hyperlipidemia, unspecified; E03.9 Hypothyroidism, unspecified; I25.10 Atherosclerotic heart disease of native coronary artery without angina pectoris; I25.5 Ischemic cardiomyopathy; F17.210 Nicotine dependence, cigarettes, uncomplicated; J44.9 Chronic obstructive pulmonary disease, unspecified; Z53.29 Procedure and treatment not carried out because of patient's decision for other reasons; I25.2 Old myocardial infarction; Z98.890 Other specified postprocedural states; Z79.899 Other long term (current) drug therapy; Z95.810 Presence of automatic (implantable) cardiac defibrillator; Z79.51 Long term (current) use of inhaled steroids; Z79.82 Long term (current) use of aspirin; Z79.890 Hormone replacement therapy; Z91.14 Patient's other noncompliance with medication regimen; Z90.49 Acquired absence of other specified parts of digestive tract; Z78.1 Physical restraint status
CPT/HCPCS: 36415; 36416; 70450; 71045; 80053; 80061; 80306; 81001; 81003; 82140; 82550; 82553; 82805; 83605; 83735; 83880; 84100; 84439; 84443; 84481; 84484; 85025; 86780; 86803; 87077; 87086; 87389; 93005; 93010; 93306; 93880; 95816; 96374; 96375; J0696; J1200; J1630; J1650; J1940; J2060; J2270; J3490; J7070; U0003; U0005

== ENCOUNTER 2021-07-25 17:46 | Inpatient (IN) | payer MEDICAID, OTHER, SELFPAY ==
[2021-07-25] MEDS ORDERED: Lorazepam 2 MG/ML VIAL ONE (18:40)
[2021-07-25] MEDS ORDERED: Haloperidol Lactate 5 MG/ML VIAL ONE (19:10)
[2021-07-25] MEDS ORDERED: diphenhydrAMINE 50 MG/ML VIAL ONE (19:10)
[2021-07-25 19:29] LABS: #Eosinphils 0.1 thou/uL (0.0-0.7); #Monocytes 0.6 thou/uL (0.11-0.59); #Neutrophils 6.3 thou/uL (1.40-6.50); %Basophils 0.1 % (0.0-1.0); %Eosinophils 1.2 % (0.0-10.0); %Lymphocytes 12.8 % (21.0-51.0); %Monocytes 7.7 % (0.0-10.0); %Neutrophils 78.2 % (42.0-75.0); Hemoglobin 14.4 g/dL (14.0-18.0); Mean Corpuscular HGB CONC 34.6 g/dL (32.0-36.0); Mean Corpuscular Hemoglobin 30.2 pg (27.0-31.0); Mean Corpuscular Volume 87.2 fL (78.0-98.0); Mean Platelet Volume 6.8 fL (7.4-10.4); Platelet Count 201 thou/uL (130-400); RBC Distribution Width 11.8 % (11.5-14.5); Red Blood Cell (RBC) Count 4.77 mill/uL (4.70-6.10)
[2021-07-25 19:52] LABS: Bacteria/HPF None Seen HPF (None Seen); Bilirubin Negative (Negative); Blood, Urine Trace (Negative); Clarity Clear (Clear); Glucose, Urine (Dipstick) Normal (Negative); Ketone, Urine Negative (Negative); Leukocyte Negative Leu/uL (Negative); Nitrite Negative (Negative); Protein, Urine (Dipstick) Negative (Neg-Trace); RBC/HPF 0-3 HPF (0-3); Specific Gravity, Urine 1.006 (1.002-1.036); Squamous Epithelial 0-3 HPF (0-3); Urobilinogen Normal mg/dL (Less than 2); WBC/HPF 0-3 HPF (0-3)
[2021-07-25 19:54] LABS: ALT (SGPT) 26 U/L (8-55); AST (SGOT) 24 U/L (5-34); Acetaminophen Less than 6.0 mcg/mL (10.0-30.0); Albumin 3.4 g/dL (3.5-5.0); Alcohol Less than 10 mg/dL (Less than 10); Alkaline Phosphatase 111 U/L (40-110); Anion Gap 14 mmol/L (10-20); BUN (Urea Nitrogen) 5 mg/dL (8.4-25.7); Calc. Creatinine Clearance 0 mL/min (70-130); Calcium 9.3 mg/dL (7.8-10.44); Carbon Dioxide 30 mmol/L (22-29); Chloride 94 mmol/L (98-107); Globulin 2.6 g/dL (2.4-3.5); Glucose 114 mg/dL (70-105); Potassium 3.2 mmol/L (3.5-5.1); Salicylate Less than 8.0 mg/dL (15.0-30.0); Sodium 135 mmol/L (136-145)
[2021-07-25 19:59] LABS: Amphetamine Not Detected (NotDetected); Barbiturates Screen Not Detected (NotDetected); Benzodiazepine Screen Detected (NotDetected); Cocaine Metabolite Screen Not Detected (NotDetected); Methadone Not Detected (NotDetected); Methamphetamine Not Detected (NotDetected); Opiate Screen Detected (NotDetected); Oxycodone Screen Not Detected (NotDetected); Phencyclidine (PCP) Not Detected (NotDetected); THC/Cannabinoid Screen Not Detected (NotDetected); Tricyclic Screen Not Detected (NotDetected)
[2021-07-25 20:14] LABS: CKMB 1.3 ng/mL (0-6.6)
[2021-07-25] MEDS ORDERED: Ondansetron PF 4 MG/2 ML Vial IVP PRN (20:49)
[2021-07-25] MEDS ORDERED: hydrALAZINE 20 MG/ML VIAL SLOW IVP PRN (20:53)
[2021-07-25] MEDS ORDERED: Lorazepam 1 MG TAB PO PRN (20:54)
[2021-07-25] MEDS ORDERED: Albuterol 200 PUFF (6.7GM INHALER) INH PRN (21:06)
[2021-07-25] MEDS: Potassium Chloride 40 MEQ in Dextrose 5%-Lactated Ringers 1,000 ML IV SCH (22:56)
[2021-07-25] MEDS ORDERED: Nicotine 14 MG PATCH ONE (22:59)
[2021-07-25] MEDS ORDERED: Ziprasidone 20 MG VIAL ONE (22:59)
[2021-07-25] MEDS ORDERED: Sterile Water 10 ML ONE (23:06)
[2021-07-25] MEDS: Ziprasidone 20 MG VIAL IM SCH (23:14)
[2021-07-25] MEDS: Sterile Water 10 ML VIAL FS PRN (23:14)
[2021-07-25] MEDS: Nicotine 14 MG PATCH TD SCH (23:15)
[2021-07-26 00:12] LABS: SARS-CoV-2 NAA Rapid Test Not Detected (NotDetected)
[2021-07-26 02:20] LABS: Troponin I 0.096 ng/mL (< 0.028)
[2021-07-26] MEDS ORDERED: Lorazepam 2 MG/ML VIAL ONE (04:56)
[2021-07-26 06:39] LABS: Albumin 2.6 g/dL (3.5-5.0); Anion Gap 15 mmol/L (10-20); BUN (Urea Nitrogen) 4 mg/dL (8.4-25.7); BUN/Creatinine Ratio 4.12; Calc. Creatinine Clearance 0 mL/min (70-130); Calcium 8.9 mg/dL (7.8-10.44); Carbon Dioxide 19 mmol/L (22-29); Cardiac Risk 5.3 (Less than 4.5); Chloride 101 mmol/L (98-107); Cholesterol 160 mg/dl (< 200 Desired); Glucose 100 mg/dL (70-105); HDL Cholesterol 30 mg/dL (>60 Neg Risk); LDL Cholesterol, Calculated 110 mg/dL; Phosphorus 3.9 mg/dL (2.3-4.7); Potassium 3.4 mmol/L (3.5-5.1); Sodium 132 mmol/L (136-145); Triglycerides 101 mg/dL (Less than 150)
[2021-07-26] MEDS ORDERED: Ziprasidone 20 MG VIAL ONE (10:16)
[2021-07-26] MEDS ORDERED: Aspirin 300 MG Suppository ONE (10:16)
[2021-07-26] MEDS: Aspirin 300 MG Suppository PR SCH (10:28)
[2021-07-26] MEDS: Ziprasidone 20 MG VIAL IM SCH (10:29)
[2021-07-26] MEDS ORDERED: Ziprasidone 20 MG VIAL IM PRN (10:32)
[2021-07-26 19:45] LABS: Hemoglobin 14.6 g/dL (14.0-18.0); Mean Corpuscular HGB CONC 33.9 g/dL (32.0-36.0); Mean Corpuscular Volume 88.4 fL (78.0-98.0); Mean Platelet Volume 6.8 fL (7.4-10.4); Platelet Count 215 thou/uL (130-400); RBC Distribution Width 12.1 % (11.5-14.5); Red Blood Cell (RBC) Count 4.88 mill/uL (4.70-6.10); White Blood Cell (WBC) Count 5.1 thou/uL (4.8-10.8)
[2021-07-26 20:02] LABS: Band 1 % (5-11); Eosinophils 3 % (0-10); Lymphocytes 37 % (21-51); MDiff Complete? YES; Monocytes 13 % (0-10); Neutrophil 44 % (42-75); Platelet Morphology Comment Appears Adequate; RBC Morphology Normal; Reactive Lymphocytes 2 % (0-10)
[2021-07-26] MEDS: Potassium Chloride 40 MEQ in Dextrose 5%-Lactated Ringers 1,000 ML IV SCH (22:14)
[2021-07-26] MEDS: Nicotine 14 MG PATCH TD SCH (22:16)
[2021-07-26] MEDS: Sterile Water 10 ML VIAL FS PRN (22:17)
[2021-07-27] MEDS: Lorazepam 2 MG/ML VIAL SLOW IVP PRN ×2 (03:55→23:47)
[2021-07-27] MEDS: Ziprasidone 20 MG VIAL IM SCH ×2 (09:06→22:52)
[2021-07-27] MEDS: Aspirin 300 MG Suppository PR SCH (09:10)
[2021-07-27] MEDS ORDERED: Polyethylene Glycol 3350 17 GM Packet PO PRN (10:00)
[2021-07-27 13:18] VITALS: BMI 22.8
[2021-07-27] MEDS ORDERED: Tamsulosin HCl 0.4 MG CAP PO SCH (14:00)
[2021-07-27] MEDS: Nicotine 14 MG PATCH TD SCH (22:52)
[2021-07-27] MEDS ORDERED: Haloperidol Lactate 5 MG/ML VIAL IM SCH (23:59)
[2021-07-28] MEDS: Lorazepam 2 MG/ML VIAL SLOW IVP PRN ×2 (05:18→21:06)
[2021-07-28] MEDS ORDERED: Polyethylene Glycol 3350 17 GM Packet PO PRN (06:45)
[2021-07-28] MEDS ORDERED: Aspirin 325 mg Enteric Coated Tablet PO SCH (09:00)
[2021-07-28] MEDS ORDERED: Ziprasidone 20 MG VIAL IM SCH (09:00)
[2021-07-28] MEDS: Tamsulosin HCl 0.4 MG CAP PO SCH (09:35)
[2021-07-28] MEDS ORDERED: Haloperidol 5 MG TAB PO SCH (10:15)
[2021-07-28] MEDS: Haloperidol 5 MG TAB PO SCH (21:06)
[2021-07-28] MEDS: Nicotine 14 MG PATCH TD SCH (21:58)
[2021-07-29] MEDS ORDERED: Lorazepam 1 MG TAB PO SCH (03:45)
[2021-07-29] MEDS ORDERED: Haloperidol Lactate 5 MG/ML VIAL IM SCH (05:45)
[2021-07-29] MEDS: Haloperidol 5 MG TAB PO SCH ×3 (11:34→20:46)
[2021-07-29] MEDS: Tamsulosin HCl 0.4 MG CAP PO SCH (11:35)
[2021-07-29] MEDS: Nicotine 14 MG PATCH TD SCH (20:47)
[2021-07-30] MEDS: Lorazepam 1 MG TAB PO PRN ×2 (01:06→19:35)
[2021-07-30] MEDS ORDERED: Famotidine 20 MG TAB PO SCH (04:30)
[2021-07-30] MEDS: Haloperidol 5 MG TAB PO SCH ×2 (08:20→19:48)
[2021-07-30] MEDS: Tamsulosin HCl 0.4 MG CAP PO SCH (08:20)
[2021-07-30] MEDS ORDERED: Ibuprofen 600 MG TAB PO SCH (10:30)
[2021-07-30] MEDS: Nicotine 14 MG PATCH TD SCH (19:35)
[2021-07-31] MEDS: Haloperidol 5 MG TAB PO SCH ×2 (09:11→19:57)
[2021-07-31] MEDS: Tamsulosin HCl 0.4 MG CAP PO SCH (09:11)
[2021-07-31] MEDS: Lorazepam 1 MG TAB PO PRN ×2 (12:07→19:56)
[2021-07-31] MEDS: Nicotine 14 MG PATCH TD SCH (19:57)
[2021-08-01] MEDS: Haloperidol 5 MG TAB PO SCH ×2 (08:53→20:49)
[2021-08-01] MEDS: Tamsulosin HCl 0.4 MG CAP PO SCH (08:53)
[2021-08-01] MEDS: Lorazepam 1 MG TAB PO PRN (20:49)
[2021-08-01] MEDS: Nicotine 14 MG PATCH TD SCH (20:49)
[2021-08-02] MEDS: Lorazepam 1 MG TAB PO PRN ×2 (02:02→06:34)
[2021-08-02] MEDS: Tamsulosin HCl 0.4 MG CAP PO SCH (09:38)
[2021-08-02] MEDS: Haloperidol 5 MG TAB PO SCH ×2 (09:38→21:16)
[2021-08-02] MEDS: Nicotine 14 MG PATCH TD SCH (21:16)
[2021-08-03] MEDS: Lorazepam 1 MG TAB PO PRN (01:21)
[2021-08-03 08:23] VITALS: BP 123/88; TEMP 98.2
[2021-08-03] MEDS: Tamsulosin HCl 0.4 MG CAP PO SCH (09:53)
[2021-08-03] MEDS: Haloperidol 5 MG TAB PO SCH (09:53)
[2021-08-03 14:33] LABS: SARS-CoV-2 PCR by NAA Not Detected (NotDetected)
== END 2021-08-03 14:00 | disposition hospice, home (50) | DRG 64 ==
LOC: ERS 17:46 → ERHOLD 20:52 → NEURO 07-26 19:54 → SURG A 07-28 02:03
PROVIDERS: ADMIT Internal Medicine; ATTEND Internal Medicine
DX: I63.511 Cerebral infarction due to unspecified occlusion or stenosis of right middle cerebral artery (principal); G93.41 Metabolic encephalopathy; I42.9 Cardiomyopathy, unspecified; I50.42 Chronic combined systolic (congestive) and diastolic (congestive) heart failure; E87.1 Hypo-osmolality and hyponatremia; Z20.822 Contact with and (suspected) exposure to COVID-19; Z66 Do not resuscitate; Z51.5 Encounter for palliative care; I11.0 Hypertensive heart disease with heart failure; F17.210 Nicotine dependence, cigarettes, uncomplicated; E87.6 Hypokalemia; J44.9 Chronic obstructive pulmonary disease, unspecified; E78.5 Hyperlipidemia, unspecified; E03.9 Hypothyroidism, unspecified; F31.9 Bipolar disorder, unspecified; M79.18 Myalgia, other site; R33.9 Retention of urine, unspecified; Z95.810 Presence of automatic (implantable) cardiac defibrillator; Z79.82 Long term (current) use of aspirin; Z79.51 Long term (current) use of inhaled steroids; Z90.49 Acquired absence of other specified parts of digestive tract; Z78.1 Physical restraint status; Z79.890 Hormone replacement therapy; Z79.899 Other long term (current) drug therapy
CPT/HCPCS: 36415; 70450; 71045; 80053; 80061; 80069; 80306; 80307; 81003; 81015; 82553; 83605; 84484; 85007; 85025; 85027; 93005; J1200; J1630; J2060; J3480; J3486; U0002; U0003; U0005

== ENCOUNTER 2021-08-17 21:50 | Inpatient (IN) | payer OTHER ==
[~2021-08-17 21:50] MED LIST: Amiodarone 150 MG/3 ML VIAL ONE
[2021-08-17] MEDS ORDERED: Metoprolol Tartrate 5 MG/5 ML VIAL ONE (22:33)
[2021-08-17 22:43] LABS: #Eosinphils 0.1 thou/uL (0.0-0.7); #Lymphocytes 1.5 thou/uL (1.20-3.40); #Monocytes 0.6 thou/uL (0.11-0.59); %Basophils 0.6 % (0.0-1.0); %Eosinophils 1.1 % (0.0-10.0); %Lymphocytes 20.9 % (21.0-51.0); %Monocytes 7.7 % (0.0-10.0); %Neutrophils 69.7 % (42.0-75.0); Hemoglobin 13.5 g/dL (14.0-18.0); Mean Corpuscular HGB CONC 33.5 g/dL (32.0-36.0); Mean Corpuscular Hemoglobin 29.5 pg (27.0-31.0); Mean Corpuscular Volume 88.1 fL (78.0-98.0); Mean Platelet Volume 6.9 fL (7.4-10.4); Platelet Count 258 thou/uL (130-400); RBC Distribution Width 12.2 % (11.5-14.5); Red Blood Cell (RBC) Count 4.56 mill/uL (4.70-6.10); White Blood Cell (WBC) Count 7.2 thou/uL (4.8-10.8)
[2021-08-17 23:04] LABS: ALT (SGPT) 12 U/L (8-55); AST (SGOT) 16 U/L (5-34); Albumin 3.6 g/dL (3.5-5.0); Alkaline Phosphatase 99 U/L (40-110); Anion Gap 16 mmol/L (10-20); BUN (Urea Nitrogen) Less than 4 mg/dL (8.4-25.7); Bilirubin, Total 0.4 mg/dL (0.2-1.2); Calc. Creatinine Clearance 0 mL/min (70-130); Calcium 9.2 mg/dL (7.8-10.44); Carbon Dioxide 19 mmol/L (22-29); Chloride 106 mmol/L (98-107); Globulin 3.1 g/dL (2.4-3.5); Glucose 119 mg/dL (70-105); Protein, Total 6.7 g/dL (6.0-8.3); Sodium 137 mmol/L (136-145)
[2021-08-17 23:13] LABS: Acetaminophen Less than 6.0 mcg/mL (10.0-30.0); Alcohol Less than 10 mg/dL (Less than 10); Salicylate Less than 8.0 mg/dL (15.0-30.0)
[2021-08-18] MEDS ORDERED: Haloperidol Lactate 5 MG/ML VIAL SLOW IVP SCH ×2 (01:15→09:00)
[2021-08-18] MEDS ORDERED: Morphine 4 MG/ML VIAL ONE (01:17)
[2021-08-18] MEDS ORDERED: Lorazepam 2 MG/ML VIAL ONE (01:17)
[2021-08-18 01:22] LABS: Amphetamine Not Detected (NotDetected); Barbiturates Screen Not Detected (NotDetected); Benzodiazepine Screen Detected (NotDetected); Cocaine Metabolite Screen Not Detected (NotDetected); Methadone Not Detected (NotDetected); Methamphetamine Not Detected (NotDetected); Opiate Screen Detected (NotDetected); Oxycodone Screen Not Detected (NotDetected); Phencyclidine (PCP) Not Detected (NotDetected); THC/Cannabinoid Screen Not Detected (NotDetected); Tricyclic Screen Not Detected (NotDetected)
[2021-08-18 01:49] LABS: Lactic Acid 1.7 mmol/L (0.5-2.2)
[2021-08-18] MEDS ORDERED: predniSONE 20 MG TAB PO SCH ×2 (02:00→08:00)
[2021-08-18] MEDS ORDERED: Azithromycin 250 MG TAB PO SCH ×2 (02:00→08:00)
[2021-08-18 02:23] LABS: SARS-CoV-2 NAA Rapid Test Not Detected (NotDetected)
[2021-08-18] MEDS ORDERED: Morphine 4 MG/ML VIAL SLOW IVP PRN (03:48)
[2021-08-18] MEDS: Amiodarone 450 MG in Dextrose 5% in Water 250 ML IVPB SCH ×2 (05:29→22:53)
[2021-08-18] MEDS ORDERED: Polyethylene Glycol 3350 17 GM Packet PO PRN (08:16)
[2021-08-18] MEDS: Enoxaparin Sodium 40 MG/0.4 ML SYRINGE SC SCH (11:20)
[2021-08-18] MEDS: Lorazepam 2 MG/ML VIAL SLOW IVP PRN ×3 (12:14→21:36)
[2021-08-18] MEDS ORDERED: Albuterol 200 PUFF (6.7GM INHALER) INH PRN (12:56)
[2021-08-18 14:56] LABS: #Basophils 0.1 thou/uL (0.0-0.2); #Eosinphils 0.1 thou/uL (0.0-0.7); #Lymphocytes 1.5 thou/uL (1.20-3.40); #Monocytes 0.4 thou/uL (0.11-0.59); #Neutrophils 4.5 thou/uL (1.40-6.50); %Basophils 0.8 % (0.0-1.0); %Eosinophils 1.4 % (0.0-10.0); %Lymphocytes 22.7 % (21.0-51.0); %Monocytes 6.4 % (0.0-10.0); %Neutrophils 68.8 % (42.0-75.0); Hemoglobin 12.4 g/dL (14.0-18.0); Mean Corpuscular HGB CONC 31.9 g/dL (32.0-36.0); Mean Corpuscular Hemoglobin 28.4 pg (27.0-31.0); Mean Corpuscular Volume 89.2 fL (78.0-98.0); Mean Platelet Volume 6.7 fL (7.4-10.4); Platelet Count 225 thou/uL (130-400); RBC Distribution Width 12.2 % (11.5-14.5); Red Blood Cell (RBC) Count 4.38 mill/uL (4.70-6.10); White Blood Cell (WBC) Count 6.5 thou/uL (4.8-10.8)
[2021-08-18 15:20] LABS: Magnesium 1.7 mg/dL (1.6-2.6)
[2021-08-18 15:27] LABS: Anion Gap 14 mmol/L (10-20); BUN (Urea Nitrogen) Less than 4 mg/dL (8.4-25.7); Calc. Creatinine Clearance 117 mL/min (70-130); Calcium 8.9 mg/dL (7.8-10.44); Carbon Dioxide 18 mmol/L (22-29); Chloride 109 mmol/L (98-107); Glucose 111 mg/dL (70-105); Potassium 3.6 mmol/L (3.5-5.1); Sodium 137 mmol/L (136-145)
[2021-08-18] MEDS: Mometasone 100 MCG/PUFF (1 INHALER) INH SCH (18:43)
[2021-08-18] MEDS: Amiodarone 200 MG TAB PO SCH (20:00)
[2021-08-19] MEDS: Mometasone 100 MCG/PUFF (1 INHALER) INH SCH ×2 (06:09→20:00)
[2021-08-19] MEDS ORDERED: Potassium Chloride 20 MEQ TAB PO SCH (07:00)
[2021-08-19] MEDS: Enoxaparin Sodium 40 MG/0.4 ML SYRINGE SC SCH (08:52)
[2021-08-19] MEDS: Amiodarone 200 MG TAB PO SCH ×2 (08:53→21:33)
[2021-08-19] MEDS: predniSONE 20 MG TAB PO SCH (08:54)
[2021-08-19] MEDS ORDERED: Azithromycin 200 MG/5 ML Oral Suspension PO SCH (09:00)
[2021-08-19] MEDS: Lorazepam 2 MG/ML VIAL SLOW IVP PRN ×2 (16:54→22:53)
[2021-08-20] MEDS: Acetaminophen 325 MG TAB PO PRN ×2 (04:18→20:42)
[2021-08-20] MEDS: Lorazepam 2 MG/ML VIAL SLOW IVP PRN (05:02)
[2021-08-20] MEDS: Mometasone 100 MCG/PUFF (1 INHALER) INH SCH ×2 (07:46→19:00)
[2021-08-20] MEDS: Enoxaparin Sodium 40 MG/0.4 ML SYRINGE SC SCH (08:22)
[2021-08-20] MEDS: Amiodarone 200 MG TAB PO SCH ×2 (08:23→20:43)
[2021-08-20] MEDS: predniSONE 20 MG TAB PO SCH (08:23)
[2021-08-20] MEDS: Lorazepam 0.5 MG TAB PO PRN ×3 (11:11→22:57)
[2021-08-20] MEDS ORDERED: Magnesium 2 GM/50 ML 2 GM in Premix Bag 1 BAG IVPB SCH (12:15)
[2021-08-21 00:01] LABS: ALT (SGPT) 10 U/L (8-55); AST (SGOT) 17 U/L (5-34); Albumin 3.8 g/dL (3.5-5.0); Alkaline Phosphatase 92 U/L (40-110); Anion Gap 15 mmol/L (10-20); BUN (Urea Nitrogen) 9 mg/dL (8.4-25.7); Calc. Creatinine Clearance 97 mL/min (70-130); Carbon Dioxide 20 mmol/L (22-29); Globulin 3.2 g/dL (2.4-3.5); Glucose 104 mg/dL (70-105)
[2021-08-21 00:31] LABS: Chloride 106 mmol/L (98-107); Sodium 137 mmol/L (136-145)
[2021-08-21 00:32] LABS: Calcium 9.7 mg/dL (7.8-10.44)
[2021-08-21 00:34] LABS: Bilirubin, Total 0.4 mg/dL (0.2-1.2)
[2021-08-21] MEDS ORDERED: Lorazepam 2 MG/ML VIAL SLOW IVP SCH (01:45)
[2021-08-21] MEDS ORDERED: Melatonin 3 MG TAB PO SCH ×2 (01:45→21:00)
[2021-08-21] MEDS: Mometasone 100 MCG/PUFF (1 INHALER) INH SCH (07:43)
[2021-08-21] MEDS ORDERED: Prevnar 13-Val Conj/PF 0.5 ML SYRINGE IM ONE (09:00)
[2021-08-21] MEDS: Amiodarone 200 MG TAB PO SCH (09:39)
[2021-08-21] MEDS: Enoxaparin Sodium 40 MG/0.4 ML SYRINGE SC SCH (09:39)
[2021-08-21] MEDS: predniSONE 20 MG TAB PO SCH (09:39)
[2021-08-21] MEDS: Lorazepam 0.5 MG TAB PO PRN ×2 (09:40→15:04)
[2021-08-21 14:43] VITALS: BMI 21.9
[2021-08-21 15:12] VITALS: BP 102/50; TEMP 97.5
== END 2021-08-21 16:15 | disposition home or self-care (01) | DRG 309 ==
LOC: ERS 21:50 → IMCU/EMU 23:32 → 2NO 08-19 19:05
PROVIDERS: ADMIT Student in an Organized Health Care Education/Training Program; ATTEND Student in an Organized Health Care Education/Training Program
PROC: 4B02XTZ Measurement of Cardiac Defibrillator, External Approach (ICD-10-PCS; principal; 2021-08-18)
DX: I47.2 Ventricular tachycardia (principal); J44.1 Chronic obstructive pulmonary disease with (acute) exacerbation; E74.04 McArdle disease; I50.22 Chronic systolic (congestive) heart failure; Z20.822 Contact with and (suspected) exposure to COVID-19; Z23 Encounter for immunization; F31.9 Bipolar disorder, unspecified; F17.210 Nicotine dependence, cigarettes, uncomplicated; F15.10 Other stimulant abuse, uncomplicated; I25.5 Ischemic cardiomyopathy; I11.0 Hypertensive heart disease with heart failure; E78.5 Hyperlipidemia, unspecified; E78.00 Pure hypercholesterolemia, unspecified; I25.2 Old myocardial infarction; Z86.73 Personal history of transient ischemic attack (TIA), and cerebral infarction without residual deficits; Z95.5 Presence of coronary angioplasty implant and graft; Z98.890 Other specified postprocedural states; Z79.899 Other long term (current) drug therapy; Z95.810 Presence of automatic (implantable) cardiac defibrillator; Z90.49 Acquired absence of other specified parts of digestive tract; Z82.49 Family history of ischemic heart disease and other diseases of the circulatory system; Z99.81 Dependence on supplemental oxygen
CPT/HCPCS: 36415; 71045; 80048; 80053; 80306; 80307; 83605; 83735; 83880; 84145; 84484; 85025; 86850; 86900; 86901; 87040; 90471; 90670; 93005; 93010; G0009; J0282; J1650; J2060; J2270; J3475; J7070; J7512; U0002

== ENCOUNTER 2022-01-21 11:35 | Inpatient (IN) | payer OTHER ==
[2022-01-21] MEDS ORDERED: Amiodarone 150 MG/3 ML VIAL ONE (11:45)
[2022-01-21] MEDS ORDERED: Amiodarone 450 MG, Admixture Fee 1 EACH in Dextrose 5% in Water 250 ML IVPB SCH (12:00)
[2022-01-21 12:14] LABS: #Eosinphils 0.1 thou/uL (0.0-0.7); #Lymphocytes 1.8 thou/uL (1.20-3.40); #Monocytes 0.6 thou/uL (0.11-0.59); #Neutrophils 4.3 thou/uL (1.40-6.50); %Basophils 0.7 % (0.0-1.0); %Eosinophils 1.4 % (0.0-10.0); %Lymphocytes 26.3 % (21.0-51.0); %Monocytes 8.7 % (0.0-10.0); %Neutrophils 62.9 % (42.0-75.0); Hemoglobin 12.5 g/dL (14.0-18.0); Mean Corpuscular HGB CONC 32.9 g/dL (32.0-36.0); Mean Corpuscular Hemoglobin 29.5 pg (27.0-31.0); Mean Corpuscular Volume 89.4 fL (78.0-98.0); Mean Platelet Volume 6.4 fL (7.4-10.4); Platelet Count 226 thou/uL (130-400); RBC Distribution Width 11.8 % (11.5-14.5); Red Blood Cell (RBC) Count 4.23 mill/uL (4.70-6.10); White Blood Cell (WBC) Count 6.8 thou/uL (4.8-10.8)
[2022-01-21 12:38] LABS: ALT (SGPT) 11 U/L (8-55); AST (SGOT) 20 U/L (5-34); Albumin 3.8 g/dL (3.5-5.0); Alkaline Phosphatase 71 U/L (40-110); Anion Gap 13 mmol/L (10-20); BUN (Urea Nitrogen) 15 mg/dL (8.4-25.7); Bilirubin, Total 0.6 mg/dL (0.2-1.2); Calc. Creatinine Clearance 0 mL/min (70-130); Calcium 8.9 mg/dL (7.8-10.44); Carbon Dioxide 24 mmol/L (22-29); Chloride 106 mmol/L (98-107); Globulin 2.3 g/dL (2.4-3.5); Glucose 110 mg/dL (70-105); Lipase 9 U/L (8-78); Potassium 3.4 mmol/L (3.5-5.1); Protein, Total 6.1 g/dL (6.0-8.3); Sodium 140 mmol/L (136-145)
[2022-01-21] MEDS ORDERED: diphenhydrAMINE 25 MG CAP ONE (16:25)
[2022-01-21] MEDS ORDERED: diphenhydrAMINE 50 MG/ML VIAL ONE (16:25)
[2022-01-21] MEDS ORDERED: Albuterol Sulfate 2.5 mg/3 ml Neb NEB PRN (18:33)
[2022-01-21 18:39] VITALS: BMI 21.2
[2022-01-21] MEDS ORDERED: Haloperidol Lactate 5 MG/ML VIAL IM PRN (18:50)
[2022-01-22] MEDS: diphenhydrAMINE 50 MG/ML VIAL IM PRN ×2 (02:02→06:06)
[2022-01-22 07:39] VITALS: TEMP 98
== END 2022-01-22 10:00 | disposition hospice, home (50) | DRG 309 ==
LOC: ERS 11:35 → IMCU/EMU 13:10
PROVIDERS: ADMIT Family Medicine; ATTEND Family Medicine
DX: I47.2 Ventricular tachycardia (principal); Z66 Do not resuscitate; Z51.5 Encounter for palliative care; I50.22 Chronic systolic (congestive) heart failure; E74.04 McArdle disease; I25.5 Ischemic cardiomyopathy; F39 Unspecified mood [affective] disorder; J44.9 Chronic obstructive pulmonary disease, unspecified; I25.10 Atherosclerotic heart disease of native coronary artery without angina pectoris; I69.328 Other speech and language deficits following cerebral infarction; Z79.899 Other long term (current) drug therapy; Z79.52 Long term (current) use of systemic steroids; I25.2 Old myocardial infarction; Z95.5 Presence of coronary angioplasty implant and graft; Z90.49 Acquired absence of other specified parts of digestive tract
CPT/HCPCS: 36415; 71045; 80053; 83690; 83735; 83880; 84484; 85025; 93005; J0282; J1200; J7070

== ENCOUNTER 2022-02-04 16:52 | Emergency (ER) | payer OTHER | END 2022-02-04 18:10 | disposition left against medical advice (07) | LOC: ERS 16:52 | DX: Z53.21 Procedure and treatment not carried out due to patient leaving prior to being seen by health care provider (principal) ==

== ENCOUNTER 2022-02-09 13:24 | Emergency (ER) | payer OTHER ==
[2022-02-09 14:39] LABS: #Eosinphils 0.2 thou/uL (0.0-0.7); #Lymphocytes 1.6 thou/uL (1.20-3.40); #Monocytes 0.6 thou/uL (0.11-0.59); #Neutrophils 5.6 thou/uL (1.40-6.50); %Basophils 0.4 % (0.0-1.0); %Eosinophils 2.2 % (0.0-10.0); %Lymphocytes 19.8 % (21.0-51.0); %Neutrophils 70.6 % (42.0-75.0); Hemoglobin 12.8 g/dL (14.0-18.0); Mean Corpuscular Hemoglobin 29.3 pg (27.0-31.0); Mean Corpuscular Volume 88.8 fL (78.0-98.0); Mean Platelet Volume 6.6 fL (7.4-10.4); Platelet Count 271 thou/uL (130-400); RBC Distribution Width 12.2 % (11.5-14.5); Red Blood Cell (RBC) Count 4.37 mill/uL (4.70-6.10)
[2022-02-09] MEDS ORDERED: Fentanyl 100 MCG/2 ML VIAL ONE (15:03)
[2022-02-09] MEDS ORDERED: Ondansetron PF 4 MG/2 ML Vial ONE (15:03)
[2022-02-09 15:05] LABS: ALT (SGPT) 26 U/L (8-55); AST (SGOT) 59 U/L (5-34); Albumin 4.2 g/dL (3.5-5.0); Alkaline Phosphatase 102 U/L (40-110); Anion Gap 17 mmol/L (10-20); BUN (Urea Nitrogen) 32 mg/dL (8.4-25.7); Bilirubin, Total 0.6 mg/dL (0.2-1.2); Calc. Creatinine Clearance 0 mL/min (70-130); Calcium 9.7 mg/dL (7.8-10.44); Carbon Dioxide 23 mmol/L (22-29); Chloride 99 mmol/L (98-107); Estimated GFR 37; Globulin 3.1 g/dL (2.4-3.5); Glucose 131 mg/dL (70-105); Potassium 4.8 mmol/L (3.5-5.1); Protein, Total 7.3 g/dL (6.0-8.3); Sodium 134 mmol/L (136-145)
[2022-02-09] MEDS ORDERED: Ondansetron ODT 4 MG TAB ONE (15:15)
== END 2022-02-09 15:36 | disposition home or self-care (01) ==
LOC: ERS 13:24
DX: R53.1 Weakness (principal); I25.2 Old myocardial infarction; J44.9 Chronic obstructive pulmonary disease, unspecified; F17.210 Nicotine dependence, cigarettes, uncomplicated; Z79.899 Other long term (current) drug therapy
CPT/HCPCS: 36415; 80053; 83605; 85025; 99284; J2405; J3010; Q0162

== ENCOUNTER 2022-02-19 14:10 | Emergency (ER) | payer OTHER ==
[2022-02-19 15:01] LABS: #Eosinphils 0.1 thou/uL (0.0-0.7); #Neutrophils 5.3 thou/uL (1.40-6.50); %Basophils 0.4 % (0.0-1.0); %Eosinophils 1.8 % (0.0-10.0); %Lymphocytes 23.2 % (21.0-51.0); %Monocytes 11.5 % (0.0-10.0); %Neutrophils 63.1 % (42.0-75.0); Hemoglobin 11.8 g/dL (14.0-18.0); Mean Corpuscular HGB CONC 33.8 g/dL (32.0-36.0); Mean Corpuscular Hemoglobin 29.8 pg (27.0-31.0); Mean Corpuscular Volume 88.2 fL (78.0-98.0); Mean Platelet Volume 6.6 fL (7.4-10.4); Platelet Count 271 thou/uL (130-400); RBC Distribution Width 12.7 % (11.5-14.5); Red Blood Cell (RBC) Count 3.97 mill/uL (4.70-6.10); White Blood Cell (WBC) Count 8.4 thou/uL (4.8-10.8)
[2022-02-19 15:25] LABS: ALT (SGPT) 16 U/L (8-55); AST (SGOT) 26 U/L (5-34); Alkaline Phosphatase 76 U/L (40-110); Anion Gap 16 mmol/L (10-20); BUN (Urea Nitrogen) 21 mg/dL (8.4-25.7); Bilirubin, Total 0.9 mg/dL (0.2-1.2); Calc. Creatinine Clearance 0 mL/min (70-130); Calcium 9.1 mg/dL (7.8-10.44); Carbon Dioxide 21 mmol/L (22-29); Chloride 103 mmol/L (98-107); Estimated GFR 65; Globulin 2.2 g/dL (2.4-3.5); Glucose 114 mg/dL (70-105); Lipase 8 U/L (8-78); Potassium 3.5 mmol/L (3.5-5.1); Protein, Total 6.2 g/dL (6.0-8.3); Sodium 136 mmol/L (136-145)
== END 2022-02-19 17:30 | disposition home or self-care (01) ==
LOC: ERS 14:10
DX: R07.9 Chest pain, unspecified (principal); I25.10 Atherosclerotic heart disease of native coronary artery without angina pectoris; I25.2 Old myocardial infarction; J44.9 Chronic obstructive pulmonary disease, unspecified; Z86.73 Personal history of transient ischemic attack (TIA), and cerebral infarction without residual deficits; F17.210 Nicotine dependence, cigarettes, uncomplicated; Z79.82 Long term (current) use of aspirin; Z79.899 Other long term (current) drug therapy
CPT/HCPCS: 36415; 71045; 80053; 83690; 84484; 85025; 93005

== ENCOUNTER 2022-03-15 18:25 | Emergency (ER) | payer OTHER | END 2022-03-15 20:07 | disposition home or self-care (01) | LOC: ERS 18:25 | DX: I50.9 Heart failure, unspecified (principal); I25.2 Old myocardial infarction; I25.10 Atherosclerotic heart disease of native coronary artery without angina pectoris; J44.9 Chronic obstructive pulmonary disease, unspecified; Z86.73 Personal history of transient ischemic attack (TIA), and cerebral infarction without residual deficits; F17.210 Nicotine dependence, cigarettes, uncomplicated; Z79.82 Long term (current) use of aspirin; Z79.899 Other long term (current) drug therapy | CPT/HCPCS: 99281 ==

== ENCOUNTER 2022-05-12 06:58 | Emergency (ER) | payer OTHER, SELFPAY ==
[2022-05-12] MEDS ORDERED: Boostrix 0.5 ML (Tdap) VIAL (>/=7 yrs of age) ONE (07:39)
== END 2022-05-12 09:00 | disposition home or self-care (01) ==
LOC: ERS 06:58
DX: S06.9X9A Unspecified intracranial injury with loss of consciousness of unspecified duration, initial encounter (principal); S61.432A Puncture wound without foreign body of left hand, initial encounter; F17.210 Nicotine dependence, cigarettes, uncomplicated; I25.10 Atherosclerotic heart disease of native coronary artery without angina pectoris; I25.2 Old myocardial infarction; J44.9 Chronic obstructive pulmonary disease, unspecified; W18.30XA Fall on same level, unspecified, initial encounter
CPT/HCPCS: 70450; 90471; 90715

== ENCOUNTER 2022-12-04 10:30 | Emergency (ER) | payer OTHER ==
[2022-12-04 11:15] LABS: #Basophils 0.1 thou/uL (0.0-0.2); #Eosinphils 0.2 thou/uL (0.0-0.7); #Monocytes 0.5 thou/uL (0.11-0.59); #Neutrophils 5.7 thou/uL (1.40-6.50); %Eosinophils 1.9 % (0.0-10.0); %Lymphocytes 18.5 % (21.0-51.0); %Monocytes 6.6 % (0.0-10.0); %Neutrophils 71.6 % (42.0-75.0); Hemoglobin 16.7 g/dL (14.0-18.0); Mean Corpuscular HGB CONC 31.7 g/dL (32.0-36.0); Mean Corpuscular Hemoglobin 28.1 pg (27.0-31.0); Mean Corpuscular Volume 88.7 fl (78.0-98.0); Mean Platelet Volume 8.8 fL (7.4-10.4); Platelet Count 300 10x3/uL (130-400); RBC Distribution Width 13.5 % (11.5-14.5); Red Blood Cell (RBC) Count 5.94 mill/uL (4.70-6.10); White Blood Cell (WBC) Count 7.9 10x3/uL (4.8-10.8)
[2022-12-04 11:39] LABS: Acetaminophen Less than 10.0 mcg/mL (10.0-30.0); Alcohol Less than 10 mg/dL (Less than 10); Magnesium 2.1 mg/dL (1.6-2.6); Salicylate Less than 8.0 mg/dL (15.0-30.0)
[2022-12-04 11:41] LABS: ALT (SGPT) 25 U/L (8-55); AST (SGOT) 21 U/L (5-34); Albumin 4.4 g/dL (3.5-5.0); Alkaline Phosphatase 106 U/L (40-110); Anion Gap 14 mmol/L (10-20); BUN (Urea Nitrogen) 16 mg/dL (8.4-25.7); Bilirubin, Total 0.4 mg/dL (0.2-1.2); CK (CPK) 146 U/L (30-200); Calc. Creatinine Clearance 0 mL/min (70-130); Calcium 10.3 mg/dL (7.8-10.44); Carbon Dioxide 24 mmol/L (22-29); Chloride 105 mmol/L (98-107); Estimated GFR 75; Globulin 2.9 g/dL (2.4-3.5); Glucose 114 mg/dL (70-105); Potassium 4.4 mmol/L (3.5-5.1); Protein, Total 7.3 g/dL (6.0-8.3); Sodium 139 mmol/L (136-145)
== END 2022-12-04 12:24 | disposition home or self-care (01) ==
LOC: ERS 10:30
DX: R07.89 Other chest pain (principal); F41.0 Panic disorder [episodic paroxysmal anxiety]; I25.10 Atherosclerotic heart disease of native coronary artery without angina pectoris; J44.9 Chronic obstructive pulmonary disease, unspecified; F17.210 Nicotine dependence, cigarettes, uncomplicated; Z79.82 Long term (current) use of aspirin; Z79.899 Other long term (current) drug therapy
CPT/HCPCS: 36415; 70450; 71045; 80053; 80307; 82550; 83605; 83735; 83880; 84484; 85025; 93005

== ENCOUNTER 2023-01-30 16:21 | Inpatient (IN) | payer MEDICAID, OTHER ==
[2023-01-30] MEDS ORDERED: Lorazepam 1 MG TAB ONE (16:46)
[2023-01-30] MEDS ORDERED: LORazepam 2 MG/ML SYR.(CARPUJECT) ONE (16:55)
[2023-01-30 18:21] LABS: #Basophils 0.1 thou/uL (0.0-0.2); #Eosinphils 0.3 thou/uL (0.0-0.7); #Monocytes 0.8 thou/uL (0.11-0.59); #Neutrophils 7.1 thou/uL (1.40-6.50); %Basophils 0.8 % (0.0-1.0); %Eosinophils 3.2 % (0.0-10.0); %Lymphocytes 17.3 % (21.0-51.0); %Monocytes 8.2 % (0.0-10.0); %Neutrophils 70.3 % (42.0-75.0); Hemoglobin 13.4 g/dL (14.0-18.0); Mean Corpuscular Hemoglobin 28.8 pg (27.0-31.0); Mean Corpuscular Volume 87.1 fl (78.0-98.0); Mean Platelet Volume 9.2 fL (7.4-10.4); Platelet Count 267 10x3/uL (130-400); RBC Distribution Width 13.8 % (11.5-14.5); Red Blood Cell (RBC) Count 4.66 mill/uL (4.70-6.10)
[2023-01-30 18:42] LABS: ALT (SGPT) 55 U/L (8-55); AST (SGOT) 51 U/L (5-34); Albumin 3.9 g/dL (3.5-5.0); Alkaline Phosphatase 162 U/L (40-110); Anion Gap 16 mmol/L (10-20); BUN (Urea Nitrogen) 15 mg/dL (8.4-25.7); Bilirubin, Total 0.4 mg/dL (0.2-1.2); Calc. Creatinine Clearance 0 mL/min (70-130); Calcium 9.3 mg/dL (7.8-10.44); Carbon Dioxide 22 mmol/L (22-29); Chloride 107 mmol/L (98-107); Estimated GFR 73; Globulin 2.4 g/dL (2.4-3.5); Glucose 103 mg/dL (70-105); Potassium 3.5 mmol/L (3.5-5.1); Protein, Total 6.3 g/dL (6.0-8.3); Sodium 141 mmol/L (136-145)
[2023-01-30 18:43] LABS: Acetaminophen Less than 10 mcg/mL (10.0-30.0); Alcohol Less than 10.0 mg/dL (Less than 10); Lipase 28 U/L (8-78); Salicylate Less than 8.0 mg/dL (15.0-30.0)
[2023-01-30 19:05] LABS: CKMB 22.2 ng/mL (0-6.6)
[2023-01-30] MEDS ORDERED: Aspirin Chewable 81 MG TAB ONE (19:16)
[2023-01-30] MEDS ORDERED: Amiodarone 150 MG/3 ML VIAL ONE (20:05)
[2023-01-30] MEDS ORDERED: Amiodarone 150 MG, Admixture Fee 1 EACH in Dextrose 5% in Water 100 ML IVPB SCH (20:15)
[2023-01-30 20:36] LABS: Phosphorus 3.4 mg/dL (2.3-4.7)
[2023-01-30] MEDS ORDERED: Ipratropium/Albuterol 3 ML NEB NEB PRN (20:45)
[2023-01-30] MEDS ORDERED: Acetaminophen 650 MG Suppository PR PRN (20:45)
[2023-01-30] MEDS ORDERED: Electrolyte Replacement Protocol 1 EACH IVPB SCH (20:45)
[2023-01-30] MEDS ORDERED: Magnesium 2 GM/50 ML(in water) 2 GM in Premix Bag 1 BAG IVPB SCH (21:15)
[2023-01-30 21:33] LABS: Troponin I 0.044 ng/mL (< 0.028)
[2023-01-30] MEDS: Amiodarone 450 MG in Dextrose 5% in Water 250 ML IVPB SCH (22:28)
[2023-01-30] MEDS ORDERED: Dextrose 5 %-0.45 % NaCl 1,000 ML IV SCH (23:15)
[2023-01-31 00:30] LABS: Bacteria/HPF None Seen HPF (None Seen); Bilirubin Negative (Negative); Blood, Urine Negative (Negative); Clarity Clear (Clear); Glucose, Urine (Dipstick) Normal (Negative); Ketone, Urine Negative (Negative); Leukocyte 75 Leu/uL (Negative); Nitrite Negative (Negative); Protein, Urine (Dipstick) 10 mg/dL (Neg-Trace); RBC/HPF 0-3 HPF (0-3); Specific Gravity, Urine 1.021 (1.002-1.036); Squamous Epithelial 0-3 HPF (0-3); Urobilinogen Normal mg/dL (Less than 2)
[2023-01-31 00:36] LABS: Amphetamine Detected (NotDetected); Barbiturates Screen Not Detected (NotDetected); Benzodiazepine Screen Not Detected (NotDetected); Cocaine Metabolite Screen Not Detected (NotDetected); Methadone Not Detected (NotDetected); Methamphetamine Detected (NotDetected); Opiate Screen Not Detected (NotDetected); Oxycodone Screen Not Detected (NotDetected); Phencyclidine (PCP) Not Detected (NotDetected); THC/Cannabinoid Screen Not Detected (NotDetected); Tricyclic Screen Not Detected (NotDetected)
[2023-01-31] MEDS: Potassium Chloride 20 MEQ in Premix Bag 1 BAG IVPB SCH ×2 (01:16→03:45)
[2023-01-31 01:25] LABS: Troponin I 0.058 ng/mL (< 0.028)
[2023-01-31] MEDS ORDERED: Haloperidol Lactate 5 MG/ML VIAL ONE (02:07)
[2023-01-31] MEDS ORDERED: Haloperidol Lactate 5 MG/ML VIAL IM SCH (02:15)
[2023-01-31] MEDS ORDERED: Haloperidol Lactate 5 MG/ML VIAL SLOW IVP SCH (02:15)
[2023-01-31] MEDS: Amiodarone 450 MG in Dextrose 5% in Water 250 ML IVPB SCH (05:10)
[2023-01-31] MEDS ORDERED: Dexmedetomidine In 0.9 % NaCl 100 ML IVPB SCH (05:45)
[2023-01-31] MEDS ORDERED: Dexmedetomidine 400 MCG, Admixture Fee 1 EACH in Sodium Chloride 0.9% 96 ML IVPB SCH (06:00)
[2023-01-31] MEDS ORDERED: Budesonide 0.5 MG/2 ML NEB INH SCH (06:30)
[2023-01-31 07:13] LABS: #Eosinphils 0.2 thou/uL (0.0-0.7); #Monocytes 0.7 thou/uL (0.11-0.59); #Neutrophils 6.4 thou/uL (1.40-6.50); %Basophils 0.5 % (0.0-1.0); %Eosinophils 2.2 % (0.0-10.0); %Neutrophils 78.1 % (42.0-75.0); Hemoglobin 13.7 g/dL (14.0-18.0); Mean Corpuscular HGB CONC 32.4 g/dL (32.0-36.0); Mean Corpuscular Hemoglobin 28.7 pg (27.0-31.0); Mean Corpuscular Volume 88.7 fl (78.0-98.0); Mean Platelet Volume 9.1 fL (7.4-10.4); Platelet Count 204 10x3/uL (130-400); RBC Distribution Width 13.8 % (11.5-14.5); Red Blood Cell (RBC) Count 4.77 mill/uL (4.70-6.10); White Blood Cell (WBC) Count 8.2 10x3/uL (4.8-10.8)
[2023-01-31 07:40] LABS: ALT (SGPT) 43 U/L (8-55); AST (SGOT) 40 U/L (5-34); Albumin 3.5 g/dL (3.5-5.0); Alkaline Phosphatase 132 U/L (40-110); Anion Gap 11 mmol/L (10-20); BUN (Urea Nitrogen) 11 mg/dL (8.4-25.7); Bilirubin, Total 0.5 mg/dL (0.2-1.2); CK (CPK) 810 U/L (30-200); Calc. Creatinine Clearance 91 mL/min (70-130); Calcium 8.5 mg/dL (7.8-10.44); Carbon Dioxide 22 mmol/L (22-29); Chloride 108 mmol/L (98-107); Estimated GFR 93; Globulin 2.4 g/dL (2.4-3.5); Glucose 121 mg/dL (70-105); Potassium 4.2 mmol/L (3.5-5.1); Protein, Total 5.9 g/dL (6.0-8.3); Sodium 137 mmol/L (136-145)
[2023-01-31] MEDS: Mometasone 200 MCG HFA INHALER (RT USE) INH SCH ×2 (08:15→19:11)
[2023-01-31] MEDS: Mometasone 100 MCG HFA INHALER (RT USE) INH SCH (08:20)
[2023-01-31] MEDS ORDERED: Famotidine/PF 20 mg/2ml Vial SLOW IVP SCH (09:00)
[2023-01-31] MEDS: Pantoprazole 40 MG VIAL IVP SCH ×2 (09:36→10:59)
[2023-01-31] MEDS: Thiamine HCl 200 MG/2 ML VIAL SLOW IVP SCH (11:12)
[2023-02-01 03:55] LABS: #Eosinphils 0.2 thou/uL (0.0-0.7); #Neutrophils 7.1 thou/uL (1.40-6.50); %Basophils 0.4 % (0.0-1.0); %Eosinophils 1.6 % (0.0-10.0); %Lymphocytes 13.8 % (21.0-51.0); %Monocytes 10.5 % (0.0-10.0); %Neutrophils 73.4 % (42.0-75.0); Hemoglobin 14.9 g/dL (14.0-18.0); Mean Corpuscular HGB CONC 32.5 g/dL (32.0-36.0); Mean Corpuscular Hemoglobin 28.5 pg (27.0-31.0); Mean Corpuscular Volume 87.9 fl (78.0-98.0); Mean Platelet Volume 9.7 fL (7.4-10.4); Platelet Count 169 10x3/uL (130-400); RBC Distribution Width 13.9 % (11.5-14.5); Red Blood Cell (RBC) Count 5.22 mill/uL (4.70-6.10); White Blood Cell (WBC) Count 9.7 10x3/uL (4.8-10.8)
[2023-02-01 04:20] LABS: ALT (SGPT) 34 U/L (8-55); AST (SGOT) 31 U/L (5-34); Albumin 3.3 g/dL (3.5-5.0); Alkaline Phosphatase 124 U/L (40-110); Anion Gap 13 mmol/L (10-20); BUN (Urea Nitrogen) 9 mg/dL (8.4-25.7); Bilirubin, Total 0.6 mg/dL (0.2-1.2); Calc. Creatinine Clearance 105 mL/min (70-130); Calcium 8.8 mg/dL (7.8-10.44); Carbon Dioxide 19 mmol/L (22-29); Chloride 108 mmol/L (98-107); Estimated GFR 104; Globulin 2.8 g/dL (2.4-3.5); Glucose 111 mg/dL (70-105); Potassium 4.7 mmol/L (3.5-5.1); Protein, Total 6.1 g/dL (6.0-8.3); Sodium 135 mmol/L (136-145)
[2023-02-01] MEDS: Mometasone 100 MCG HFA INHALER (RT USE) INH SCH (07:33)
[2023-02-01] MEDS: Mometasone 200 MCG HFA INHALER (RT USE) INH SCH ×2 (07:35→18:20)
[2023-02-01] MEDS ORDERED: Dextrose 5%-Lactated Ringers 1,000 ML IV SCH (07:45)
[2023-02-01] MEDS: Multivit, Therapeutic 1 TAB PO SCH (09:10)
[2023-02-01] MEDS: Folic Acid 1 MG TAB PO SCH (09:10)
[2023-02-01 09:36] LABS: Magnesium 2.1 mg/dL (1.6-2.6)
[2023-02-01] MEDS ORDERED: Amiodarone 200 MG TAB PO SCH (09:45)
[2023-02-01] MEDS ORDERED: Dextrose 5 % And 0.9 % NaCl 1,000 ML IV SCH (09:45)
[2023-02-01] MEDS: Pantoprazole 40 MG VIAL IVP SCH (11:01)
[2023-02-01] MEDS: Thiamine HCl 200 MG/2 ML VIAL SLOW IVP SCH (11:02)
[2023-02-01] MEDS: Amiodarone 200 MG TAB PO SCH (20:48)
[2023-02-02] MEDS: Thiamine HCl 200 MG/2 ML VIAL SLOW IVP SCH (07:28)
[2023-02-02] MEDS: Pantoprazole 40 MG VIAL IVP SCH (07:29)
[2023-02-02] MEDS: Amiodarone 200 MG TAB PO SCH ×2 (07:29→22:02)
[2023-02-02] MEDS: Multivit, Therapeutic 1 TAB PO SCH (07:30)
[2023-02-02] MEDS: Folic Acid 1 MG TAB PO SCH (07:30)
[2023-02-02] MEDS: Mometasone 200 MCG HFA INHALER (RT USE) INH SCH ×2 (12:07→18:26)
[2023-02-02 17:14] LABS: ALT (SGPT) 27 U/L (8-55); AST (SGOT) 25 U/L (5-34); Albumin 3.6 g/dL (3.5-5.0); Alkaline Phosphatase 123 U/L (40-110); Anion Gap 13 mmol/L (10-20); BUN (Urea Nitrogen) 13 mg/dL (8.4-25.7); Bilirubin, Total 0.5 mg/dL (0.2-1.2); Calc. Creatinine Clearance 103 mL/min (70-130); Calcium 9.3 mg/dL (7.8-10.44); Carbon Dioxide 22 mmol/L (22-29); Chloride 106 mmol/L (98-107); Estimated GFR 103; Globulin 2.9 g/dL (2.4-3.5); Glucose 116 mg/dL (70-105); Magnesium 1.9 mg/dL (1.6-2.6); Potassium 3.9 mmol/L (3.5-5.1); Protein, Total 6.5 g/dL (6.0-8.3); Sodium 137 mmol/L (136-145)
[2023-02-02] MEDS ORDERED: Magnesium 2 GM/50 ML(in water) 2 GM in Premix Bag 1 BAG IVPB SCH (18:00)
[2023-02-02] MEDS ORDERED: Electrolyte Replacement Protocol FS PRN (18:00)
[2023-02-03] MEDS: Mometasone 200 MCG HFA INHALER (RT USE) INH SCH ×2 (07:23→18:35)
[2023-02-03 08:18] LABS: Magnesium 2.2 mg/dL (1.6-2.6)
[2023-02-03] MEDS: Multivit, Therapeutic 1 TAB PO SCH (09:19)
[2023-02-03] MEDS: Folic Acid 1 MG TAB PO SCH (09:19)
[2023-02-03] MEDS: Amiodarone 200 MG TAB PO SCH ×2 (09:20→20:53)
[2023-02-03] MEDS: Thiamine 100 MG TAB PO SCH (09:20)
[2023-02-03] MEDS: Nicotine 14 MG PATCH TD SCH (12:17)
[2023-02-03] MEDS ORDERED: Acetaminophen 500 MG TAB PO SCH (16:23)
[2023-02-03] MEDS ORDERED: Acetaminophen 500 MG TAB PO PRN (16:24)
[2023-02-03] MEDS: Lorazepam 0.5 MG TAB PO PRN ×2 (16:34→20:53)
[2023-02-04 05:49] LABS: Anion Gap 15 mmol/L (10-20); BUN (Urea Nitrogen) 15 mg/dL (8.4-25.7); Calc. Creatinine Clearance 91 mL/min (70-130); Calcium 9.3 mg/dL (7.8-10.44); Carbon Dioxide 20 mmol/L (22-29); Chloride 105 mmol/L (98-107); Estimated GFR 104; Glucose 108 mg/dL (70-105); Potassium 4.4 mmol/L (3.5-5.1); Sodium 136 mmol/L (136-145)
[2023-02-04] MEDS: Mometasone 200 MCG HFA INHALER (RT USE) INH SCH ×2 (06:34→18:43)
[2023-02-04] MEDS ORDERED: Magnesium 2 GM/50 ML(in water) 2 GM in Premix Bag 1 BAG IVPB SCH (08:00)
[2023-02-04] MEDS: Thiamine 100 MG TAB PO SCH (10:04)
[2023-02-04] MEDS: Multivit, Therapeutic 1 TAB PO SCH (10:04)
[2023-02-04] MEDS: Amiodarone 200 MG TAB PO SCH (10:04)
[2023-02-04] MEDS: Folic Acid 1 MG TAB PO SCH (10:04)
[2023-02-04] MEDS: Lorazepam 0.5 MG TAB PO PRN ×3 (10:06→16:18)
[2023-02-04 12:38] VITALS: TEMP 97.2
[2023-02-04] MEDS ORDERED: Lidocaine 2% 20 ml MDV SC SCH (14:00)
[2023-02-04 14:38] VITALS: BMI 20.9
[2023-02-04] MEDS ORDERED: Lidocaine 2% PF 5 ML VIAL FS SCH (14:45)
[2023-02-04] MEDS: Nicotine 14 MG PATCH TD SCH (15:24)
[2023-02-04 16:07] VITALS: BP 120/67
[2023-02-16] MEDS ORDERED: Amiodarone 200 MG TAB PO SCH (09:00)
== END 2023-02-04 19:40 | disposition left against medical advice (07) | DRG 309 ==
LOC: ERS 16:21 → CCU 19:23 → IMCU/EMU 02-01 11:14 → 2NO 02-02 11:52
PROVIDERS: ADMIT Student in an Organized Health Care Education/Training Program; ATTEND Student in an Organized Health Care Education/Training Program
PROC: 0J9G0ZZ Drainage of Right Lower Arm Subcutaneous Tissue and Fascia, Open Approach (ICD-10-PCS; principal; 2023-02-04)
DX: I47.20 Ventricular tachycardia, unspecified (principal); G93.40 Encephalopathy, unspecified; I50.22 Chronic systolic (congestive) heart failure; L02.413 Cutaneous abscess of right upper limb; I42.9 Cardiomyopathy, unspecified; I25.10 Atherosclerotic heart disease of native coronary artery without angina pectoris; J44.9 Chronic obstructive pulmonary disease, unspecified; Z66 Do not resuscitate; F43.10 Post-traumatic stress disorder, unspecified; F31.9 Bipolar disorder, unspecified; F17.210 Nicotine dependence, cigarettes, uncomplicated; E86.0 Dehydration; I45.81 Long QT syndrome; E78.00 Pure hypercholesterolemia, unspecified; I25.5 Ischemic cardiomyopathy; I11.0 Hypertensive heart disease with heart failure; R34 Anuria and oliguria; I95.9 Hypotension, unspecified; Z79.899 Other long term (current) drug therapy; I25.2 Old myocardial infarction; Z95.0 Presence of cardiac pacemaker; Z95.5 Presence of coronary angioplasty implant and graft; Z90.49 Acquired absence of other specified parts of digestive tract; Z98.890 Other specified postprocedural states; Z86.73 Personal history of transient ischemic attack (TIA), and cerebral infarction without residual deficits; Z82.49 Family history of ischemic heart disease and other diseases of the circulatory system; Z91.148 Patient's other noncompliance with medication regimen for other reason
CPT/HCPCS: 36415; 36416; 71045; 80048; 80053; 80306; 80307; 81001; 82550; 82553; 83690; 83735; 83880; 84100; 84484; 85025; 93005; 94664; 94760; 96361; 96372; 96374; 96376; C9113; J0282; J1630; J1650; J2060; J3411; J3475; J3480; J3490; J7042; J7070

== ENCOUNTER 2023-03-24 16:21 | Emergency (ER) | payer OTHER ==
[2023-03-24 17:32] LABS: #Basophils 0.1 thou/uL (0.0-0.2); #Eosinphils 0.4 thou/uL (0.0-0.7); #Monocytes 0.7 thou/uL (0.11-0.59); %Basophils 0.7 % (0.0-1.0); %Eosinophils 4.3 % (0.0-10.0); %Lymphocytes 13.9 % (21.0-51.0); %Monocytes 8.7 % (0.0-10.0); %Neutrophils 72.2 % (42.0-75.0); Hematocrit 35.5 % (42.0-52.0); Mean Corpuscular HGB CONC 33.8 g/dL (32.0-36.0); Mean Corpuscular Hemoglobin 28.6 pg (27.0-31.0); Mean Corpuscular Volume 84.7 fl (78.0-98.0); Mean Platelet Volume 8.9 fL (7.4-10.4); Platelet Count 221 10x3/uL (130-400); RBC Distribution Width 13.1 % (11.5-14.5); Red Blood Cell (RBC) Count 4.19 mill/uL (4.70-6.10); White Blood Cell (WBC) Count 8.4 10x3/uL (4.8-10.8)
[2023-03-24 17:56] LABS: ALT (SGPT) 15 U/L (8-55); AST (SGOT) 19 U/L (5-34); Albumin 3.5 g/dL (3.5-5.0); Alkaline Phosphatase 92 U/L (40-110); Anion Gap 12 mmol/L (10-20); BUN (Urea Nitrogen) 15 mg/dL (8.4-25.7); Bilirubin, Total 0.2 mg/dL (0.2-1.2); Calc. Creatinine Clearance 0 mL/min (70-130); Calcium 8.5 mg/dL (7.8-10.44); Carbon Dioxide 21 mmol/L (22-29); Chloride 107 mmol/L (98-107); Estimated GFR 99; Globulin 2.2 g/dL (2.4-3.5); Glucose 122 mg/dL (70-105); Potassium 4.1 mmol/L (3.5-5.1); Protein, Total 5.7 g/dL (6.0-8.3); Sodium 136 mmol/L (136-145)
[2023-03-24] MEDS ORDERED: Ketorolac Tromethamine 30 MG/ML VIAL ONE (18:05)
[2023-03-24] MEDS ORDERED: cefTRIAXone (ROCEPHIN) 2 GM VIAL ONE (18:05)
== END 2023-03-24 19:07 | disposition home or self-care (01) ==
LOC: ERS 16:21
DX: L03.113 Cellulitis of right upper limb (principal); F15.129 Other stimulant abuse with intoxication, unspecified; Y90.9 Presence of alcohol in blood, level not specified; I25.10 Atherosclerotic heart disease of native coronary artery without angina pectoris; J44.9 Chronic obstructive pulmonary disease, unspecified; F17.210 Nicotine dependence, cigarettes, uncomplicated; Z79.899 Other long term (current) drug therapy; Z79.82 Long term (current) use of aspirin
CPT/HCPCS: 36415; 80053; 85025; 93005; 96365; 96375; J0696; J1885